=== PATIENT | male | born 1940 | race Caucasian/White ===

== ENCOUNTER 2019-09-01 12:19 | Observation (INO) | payer MEDICARE, SELFPAY ==
[2019-09-01] VITALS (25 sets, daily range): BP systolic 123–184; BP diastolic 62–93; PULSE 54–83; RESP 11–20; TEMP 36.6–37; O2SAT 96–100; BMI 27.8
--- NOTE | ~2019-09-01 | XR_ITS ---
XR chest 1V portable DATE: 09/01/2019 12:21 INDICATION: Right upper chest pain. Medically control hypertension. TECHNIQUE: Portable upright AP chest on 09/01/2019 at 1221 hours COMPARISON: 04/18/2017 PA and lateral chest FINDINGS: Heart size is within normal limits. There is aortic calcification and unfolding. There is m ild infiltrate or atelectasis involving primarily the lower lung zones. Status post sternotomy. Thoracic pedicle screws and rods are noted. Diffuse osteopenia. Bilateral glenohumeral osteoarthritis. IMPRESSION: Mild infiltrate or atelectasis involving the lower lung zones Reviewed, dictated and finalized at location A.
--- NOTE | 2019-09-01 12:01 | ED.GENADULT ---
HPI - General Adult General Chief complaint: Chest Pain Stated complaint: chest pain Time Seen by Provider: 09/01/19 12:03 Source: patient and RN notes reviewed Mode of arrival: EMS Limitations: no limitations History of Present Illness HPI narrative: Pt is a 78 y/o male presenting to the ED c/o CP. Pt reports he started experiencing substernal CP intermittently since last Tuesday. Pt states his pain is sharp and lasts for an unknown duration of time before resolving. Pt also reports SOB and upper ABD pain. Pt notes he was seen at this facility about 4-5 times throughout July and July of this year due to heart problems and was told he was having Vasovagal episodes after having his heart checked out. Pt notes he sees Dr. Gamino as his Compensation Business Partner. Pt states he is currently experiencing mild CP in his ED bed. Onset (ago): week(s) (1) Location: chest (Substernal) Quality: sharp Pain Consistency: intermittent Associated symptoms: shortness of breath and other (Upper abdominal pain) Related Data Home Medications Medication Instructions Recorded Confirmed aspirin 81 mg PO DAILY 09/01/19 09/01/19 clopidogrel [Plavix] 75 mg PO DAILY 09/01/19 09/01/19 ergocalciferol (vitamin D2) 50,000 unit PO WEEKLY 09/01/19 09/01/19 fentanyl 1 patch TRANSDERMAL Q72H 09/01/19 09/01/19 finasteride 5 mg PO DAILY 09/01/19 09/01/19 furosemide 20 mg PO DAILY 09/01/19 09/01/19 hydralazine 25 mg PO TID 09/01/19 09/01/19 hydrocodone-acetaminophen 1 tablet PO Q6H PRN 09/01/19 09/01/19 ipratropium bromide [Atrovent HFA] 1 puff INHALATION QID 09/01/19 09/01/19 lisinopril 10 mg PO BID 09/01/19 09/01/19 ropinirole 0.5 mg PO TID 09/01/19 09/01/19 simvastatin 40 mg PO DAILY 09/01/19 09/01/19 tamsulosin 0.4 mg PO DAILY 09/01/19 09/01/19 testosterone cypionate 200 mg IM WEEKLY 09/01/19 09/01/19 Allergies Allergy/AdvReac Type Severity Reaction Status Date / Time clopidogrel Allergy Mild Unknown Verified 09/01/19 12:23 albuterol Allergy Unknown Verified 09/01/19 12:24 metoprolol [From Toprol XL] Allergy Unknown Verified 09/01/19 12:24 Review of Systems Review of Systems: All systems reviewed & are unremarkable except as noted in HPI and below Cardiovascular: Cardiovascular: Reports chest pain (Substernal) Respiratory: Respiratory: Reports dyspnea Gastrointestinal: Gastrointestinal: Reports abdominal pain (Upper) [facility] Past Medical History Medical History (Updated 09/01/19 @ 14:25 by Sam Duong, DO) Abdominal aortic aneurysm (Acute) BPH (benign prostatic hyperplasia) (Acute) COPD (chronic obstructive pulmonary disease) (Acute) HTN (hypertension) (Acute) Obstructive sleep apnea on CPAP (Acute) Surgical History Surgical History (Updated 09/01/19 @ 14:09 by Lenard Nguyen) H/O heart artery stent (Acute) History of colonoscopy (Acute) History of tonsillectomy (Acute) History of total right knee replacement (Acute) Hx of CABG (Acute) Previous back surgery (Acute) Social History Social History Gender identity (if verbalized by the patient): Male Comments No known PMHx identified. Exam Narrative: Exam Narrative: APPEARANCE: No acute distress, nontoxic, resting in bed EYES: EOMI HEENT: Normocephalic, atraumatic, OMM RESPIRATORY: No respiratory distress Clear to auscultation bilaterally with no rhonchi wheezing or rales. CARDIOVASCULAR: Regular rate and rhythm without murmurs rubs or gallops. ABDOMINAL: Soft, nontender, nondistended, no rebound or guarding MUSCULOSKELETAl: Moves all extremities. No clubbing, cyanosis or edema. NEURO: Awake and alert. Following commands, speech normal, no focal deficits SKIN:: Warm, dry. No rashes lesions or abrasions PSYCHIATRIC: Normal affect/mood, Course Consultations Consultation #1: Discussed case with Compensation Business Partner Dr. Velasquez. Accepted the pt for consultation. Date: 09/01/19 Time: 13:18 Consultation #2: Discussed case with Hospitalist HEATHER Zuniga
--- NOTE | 2019-09-01 12:17 | ECG_ITS ---
Measurements Intervals [place] Rate: 60 P: -27 IN: 148 QRS: 101 QRSD: 113 T: 18 QT: 401 QTc: 401 Interpretive Statements SINUS RHYTHM ATRIAL PREMATURE COMPLEX POSSIBLE LEFT ATRIAL ENLARGEMENT RIGHT AXIS DEVIATION DELAYED PRECORDIAL R/S TRANSITION BORDERLINE ST-T WAVE ABNORMALITY- INFERIOR LEADS BASELINE ARTIFACT- I, II, AVR BORDERLINE ECG Electronically Signed On 09-01-2019 19:16:27 CDT by Zachary Hoang D.O.
[2019-09-01 12:25] LABS: Basophils Percent Auto 0.5 % (0.2-1.2); Eosinophils Absolute Auto 0.1 K/mm3 (0-0.3); Eosinophils Percent Auto 1.5 % (0-4.4); Hematocrit 43.1 % (42.0-52.0); Hemoglobin 14.6 g/dL (14.0-18.0); Immature Granulocyte Absolute 0.02 K/mm3 (0.00-0.031); Immature Granulocyte Percent A 0.3 % (0-0.5); Lymphocytes Absolute Auto 1.25 K/mm3 (0.9-3.2); Lymphocytes Percent Auto 21.1 % (18.3-44.2); Mean Corpuscular HGB Conc 33.9 g/dl (32-36); Mean Corpuscular Hemoglobin 32.7 pg (26-34); Mean Corpuscular Volume 96.6 fl (80-100); Mean Platelet Volume 9.5 fl (7.4-10.4); Monocytes Absolute Auto 0.5 K/mm3 (0.1-0.6); Monocytes Percent Auto 7.8 % (2.6-8.5); Neutrophils Absolute Auto 4.1 K/mm3 (1.3-6.7); Neutrophils Percent Auto 68.8 % (45.5-73.1); Platelet Count Result 155 k/mm3 (150-375); Red Blood Count 4.46 M/mm3 (4.6-6.20); Red Cell Distribution Width 13.2 % (11.5-14.5); White Blood Count 5.9 K/mm3 (4.5-10.0)
[2019-09-01 12:35] LABS: INR 1.1; Prothrombin Time 13.4 Seconds (11.1-14.7)
[2019-09-01 12:36] LABS: Alanine Aminotransferase 16 U/L (4-50); Albumin Level 4.3 g/dL (3.5-5.1); Alkaline Phosphatase 71 U/L (38-126); Aspartate Amino Transferase 27 U/L (17-59); Blood Urea Nitrogen 16 mg/dL (9-20); Calcium 9.5 mg/dL (8.4-10.2); Carbon Dioxide 25 mmol/L (22-30); Chloride 102 mmol/L (98-107); Estimated CRCL calculation 72 ml/min; Estimated Glomerular Filt Rate > 60; Glucose 90 mg/dL (75-110); Sodium 138 mmol/L (137-145)
[2019-09-01] MEDS: BELLADONNA ALK/PHENOB ELIX 10 ML, MAG HYDROX/ALUMINUM HYD/SIMETH 30 ML, LIDOCAINE HCL 2... PO (12:39)
[2019-09-01 13:03] LABS: Troponin I 0.043 ng/mL (0.000-0.034)
--- NOTE | 2019-09-01 14:47 | ADMGEN ---
This patient, Jan Adams, was admitted to Intermediate Care Unit-01. Patient/family oriented to hospital policies and general routines including ID bracelet, bed and alarms, visiting hours, pain management, procedures, bathroom and other care routines, personal items, smoking policy, room service/diet, and visiting hours. Valuables list has been completed. Information on how to activate the Rapid Response Team has been discussed. Patient/Family are encouraged to report perceived risks to care and to ask questions if they do not understand what they are told or what they should do.
[2019-09-01 18:29] LABS: Troponin I 0.031 ng/mL (0.000-0.034)
[2019-09-01] MEDS: hydrALAZINE HCL 25 MG TABLET PO (20:55)
[2019-09-01] MEDS: FINASTERIDE 5 MG TABLET PO (20:55)
[2019-09-01] MEDS: SIMVASTATIN 20 MG TABLET 40 MG PO (20:55)
[2019-09-01] MEDS: ASPIRIN 81 MG CHEWABLE TABLET PO (20:55)
[2019-09-01] MEDS: LISINOPRIL 10 MG TABLET PO (20:56)
--- NOTE | 2019-09-01 21:12 | PM.IMHP ---
H&P: HPI History of Present Illness Chief complaint: Chest Pain. Narrative: Jan Adams is a pleasant 78 year old male with coronary artery disease status post CABG and multiple stents over the years and history of gastritis with a very small gastric ulcer in May 1019 who presented to the emergency department earlier this afternoon via EMS for evaluation of chest pain. Since May, he has had intermittent problems with chest pain and near syncopal episodes that he has been told are vasovagal reactions. On June 29, 2019 Dr. Ramirez did endoscopy for further evaluation and the patient was found to have a very small antral gastric ulcer and duodenal bulb erosions x2. Histology revealed findings of mild chronic gastritis with superficial erosions and reactive epithelial cells. He was prescribed Protonix, 30 day supply, but he did not have that refilled thereafter. He was hospitalized again in July 2019 for chest pain. A stress test done on the was negative for ischemia, fixed or reversible, and showed an ejection fraction of 52%. He was discharged with a 14 day event monitor and notes that he had some sort of arrhythmia for which she was referred to an flash developer at [facility]. Implementation Manager reportedly told Mr. Adams that ?my arrhythmias were due to vasovagal? and he was told to lie down when he was experiencing any symptoms of such. He experiences what he believes are vasovagal responses almost daily, and it is very concerning to him. He was also told not to use his nitroglycerin as it could further drop his blood pressure. Unfortunately, with the episodes he describes, he frequently gets chest pain and today was no different. Simply while sitting down he developed right anterior chest pain that he describes as pressure-like in nature without radiation. Associated symptoms include nausea and shortness of breath. He was given a GI cocktail in the emergency department which did seem to help somewhat. His troponin level was also a bit elevated, however, and he is being admitted in this setting. At the time my evaluation, he does not have any chest pain but is currently complaining of 5/10 pain in his right hip and across the lower back which he states is due to SI joint problems. He denies fever, chills, sweats, pleuritic pain, palpitations, edema, vomiting, and sweats. Review of Systems Review of Systems: All systems reviewed & are unremarkable except as noted in HPI and below PMFSH Past Medical History Medical History (Updated 09/03/19 @ 14:27 by Amada Le PA-C) Abdominal aortic aneurysm (Acute) BPH (benign prostatic hyperplasia) (Acute) Chronic pain (Acute) COPD (chronic obstructive pulmonary disease) (Acute) Coronary artery disease (Acute) Gastric ulcer (Acute) HTN (hypertension) (Acute) Obstructive sleep apnea on CPAP (Acute) Surgical History Surgical History H/O heart artery stent (Acute) History of colonoscopy (Acute) History of tonsillectomy (Acute) History of total right knee replacement (Acute) Hx of CABG (Acute) Previous back surgery (Acute) Family History Family History Father Acute myocardial infarction Mother Dementia Social History Social History Social History: The patient is and lives with his in [place]. 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 He designates his as his surrogate decision maker and he wishes to be a full code. He is a former smoker and quit at the time of his bypass. Smoking status: Former smoker Tobacco type: cigarettes Second hand tobacco smoke exposure: Yes Smoking end date: 02/27/91 Alcohol intake: current Drinks per week: 0 Substance use: never Gender identity (if verbalized by the patient): Male S
[2019-09-02] VITALS (18 sets, daily range): BP systolic 122–166; BP diastolic 59–91; PULSE 49–78; RESP 16–20; TEMP 36.5–37.3; O2SAT 96–100
--- NOTE | 2019-09-02 03:23 | PC.NURSE ---
Daylight Savings Time For Daylight Savings Time Ending in the Fall - Clocks are moved back. For Daylight Savings Time Beginning in the Spring - Clocks are moved ahead. For [facility], the time of change occurs at 0200 hrs. Time is taken from the server manager. This entry on the patient's chart recognizes the change in time reflected during documentation. Example: 2 entries for vital signs may be charted for 0200 hrs.
[2019-09-02 05:00] LABS: Basophils Percent Auto 0.7 % (0.2-1.2); Eosinophils Absolute Auto 0.2 K/mm3 (0-0.3); Eosinophils Percent Auto 2.7 % (0-4.4); Hematocrit 42.4 % (42.0-52.0); Hemoglobin 12.9 g/dL (14.0-18.0); Immature Granulocyte Absolute 0.01 K/mm3 (0.00-0.031); Immature Granulocyte Percent A 0.2 % (0-0.5); Lymphocytes Percent Auto 37.6 % (18.3-44.2); Mean Corpuscular HGB Conc 30.4 g/dl (32-36); Mean Corpuscular Hemoglobin 31.8 pg (26-34); Mean Corpuscular Volume 104.4 fl (80-100); Mean Platelet Volume 9.4 fl (7.4-10.4); Monocytes Absolute Auto 0.5 K/mm3 (0.1-0.6); Monocytes Percent Auto 9.3 % (2.6-8.5); Neutrophils Absolute Auto 2.8 K/mm3 (1.3-6.7); Neutrophils Percent Auto 49.5 % (45.5-73.1); Platelet Count Result 135 k/mm3 (150-375); Red Blood Count 4.06 M/mm3 (4.6-6.20); Red Cell Distribution Width 13.1 % (11.5-14.5); White Blood Count 5.6 K/mm3 (4.5-10.0)
[2019-09-02 05:11] LABS: Blood Urea Nitrogen 13 mg/dL (9-20); Carbon Dioxide 23 mmol/L (22-30); Chloride 102 mmol/L (98-107); Estimated CRCL calculation 81 ml/min; Estimated Glomerular Filt Rate > 60; Glucose 92 mg/dL (75-110); Sodium 136 mmol/L (137-145)
[2019-09-02] MEDS: hydrALAZINE HCL 25 MG TABLET PO ×2 (08:38→16:56)
[2019-09-02] MEDS: LISINOPRIL 10 MG TABLET PO ×2 (08:38→20:27)
[2019-09-02] MEDS: FUROSEMIDE 40 MG TABLET PO (08:38)
[2019-09-02] MEDS: TAMSULOSIN HCL 0.4 MG CAPSULE PO (08:38)
[2019-09-02] MEDS: PANTOPRAZOLE 40 MG TABLET PO (08:39)
--- NOTE | 2019-09-02 09:39 | PC.NURSE ---
Patient has adverse reaction to generic plavix. Patient's will bring his trade name medication from home.
[2019-09-02] MEDS: DOCUSATE SODIUM 100 MG CAPSULE PO ×2 (10:29→20:27)
--- NOTE | 2019-09-02 11:36 | PM.CNCAR ---
Assessment and Plan Assessment and plan (1) Elevated troponin: Code(s): R79.89 - Other specified abnormal findings of blood chemistry Status: Acute Assessment and Plan: Troponins were slightly elevated and down trending. Cannot rule out ACS completely. Continue aspirin, clopidogrel, lisinopril, statin. I will give him 1 dose Lovenox 1 milligram/kilogram subcu x1. Despite a negative perfusion study in the recently, he has come to the hospital now on several occasions with chest pain. In fact he says he has been evaluated either in the emergency room or admitted 7 times in the past couple of months. Often times associated with symptoms of chest tightness. Despite negative stress test, it may be prudent to perform a coronary angiogram to define his coronary/graft anatomy once and for all at this point. Will discuss with interventionalist (2) Chest pain: Qualifiers: Chest pain type: other chest pain Qualified Code(s): R07.89 - Other chest pain Code(s): R07.9 - Chest pain, unspecified Status: Acute Assessment and Plan: Cardiac versus GI versus anxiety versus other. As detailed above (3) Coronary artery disease: Code(s): I25.10 - Atherosclerotic heart disease of [place] coronary artery without angina pectoris Status: Acute Assessment and Plan: History of CABG and multiple stents (4) HTN (hypertension): Code(s): I10 - Essential (primary) hypertension Status: Acute Assessment and Plan: Controlled today (5) Pre-syncope: Code(s): R55 - Syncope and collapse Status: Acute Assessment and Plan: Possibly vagal. Plan is for an implantable loop recorder. This was discussed with electrophysiology and I think it is reasonable given his recurrent presyncopal episodes. History of Present Illness History of Present Illness Consult date/time: 09/02/19 11:36 Date of service September 02, 2019 Requesting physician: Amada Le Consult reason: chest pain Chief complaint: Chest Pain. Narrative: Patient is a 78-year-old male who has a known history of coronary disease and multiple stents and bypass surgery. He also has gastritis. He has been in this hospital 7 times over the past couple of months. He is a patient of Dr. Granados. He also saw electrophysiology recently who thought the possibly his lightheadedness was related to vasovagal etiology. Last week he was at his class reunion this started feel poorly. Over this next entire week he has felt poorly. He feels ?knot?. He has random episodes of lightheadedness lasting for 10 minutes to 2 hours. He has not passed out. He also has some chest pain and pressure occurring on a daily basis it will last for about an hour at a time. He did have some improvement with a GI cocktail emergency room but that was only on 1 occasion. He does have chest pressure as well as headache and feeling as if he is going to pass out. He is increasingly frustrated and wants an implantable loop recorder placed as well as a cardiac catheterization to define his coronary anatomy. Patient denies any syncope. Does have some swelling with comes and goes. No paroxysmal nocturnal dyspnea, orthopnea. He came to the hospital in his troponin level was slightly elevated 0.043. His trended down to 0.031. EKG shows normal sinus rhythm, premature atrial contraction, left atrial enlargement nonspecific ST T wave abnormality. This EKG is personally reviewed Review of Systems Review of Systems: All systems reviewed & are unremarkable except as noted in HPI and below Constitutional: Constitutional: Reports fatigue Eyes: Eyes: Denies blurry vision ENT: Denies epistaxis Cardiovascular: Cardiovascular: Reports chest pain and Reports pedal edema Respiratory: Respiratory: Denies cough Gastrointestinal: Gastrointestinal: Denies abdominal pain Genitourinary: Genitourinary: Denies dysuria Musculoskeletal: Musculoskelet
[2019-09-02] MEDS: ENOXAPARIN 80 MG/0.8 ML SYRINGE 75 MG SUB-Q (13:23)
--- NOTE | 2019-09-02 13:51 | PM.IMPN ---
Progress Note: A&P Assessment and Plan (1) Chest pain: Qualifiers: Chest pain type: other chest pain Qualified Code(s): R07.89 - Other chest pain Code(s): R07.9 - Chest pain, unspecified Status: Acute Assessment and Plan: Patient is 78-year-old male with a past medical history of coronary artery disease with CABG and 14 stents, for last 2 months patient has experienced chest pain he has been evaluated emergency department as well as admitted in the hospital without any definite diagnosis his symptoms are persisting, a most time he is diagnosed with vasovagal however his symptoms keep persistenting, today he is tropes are slightly elevated patient is seen by stock trader and recommended to further evaluate patient's persistent chest pain his recommending cardiac catheterization which is scheduled for tomorrow and further recommendation to follow patient has agreed with plan (2) Elevated troponin: Code(s): R79.89 - Other specified abnormal findings of blood chemistry Status: Acute Assessment and Plan: Most likely demand ischemia due to chest pain however patient does have a strong history of coronary artery disease with a CABG and 14 stents seen by stock trader recommending cardiac Angiography for further evaluation (3) HTN (hypertension): Code(s): I10 - Essential (primary) hypertension Status: Acute Assessment and Plan: Will continue home regimen and monitor (4) Arrhythmia: Code(s): I49.9 - Cardiac arrhythmia, unspecified Status: Acute Assessment and Plan: Patient is seen by animal eviscerator does not suspect patient has arrhythmia however is seen by stock trader and further recommendation to follow (5) Coronary artery disease: Code(s): I25.10 - Atherosclerotic heart disease of [place] coronary artery without angina pectoris Status: Acute Assessment and Plan: Patient with strong history of coronary artery disease with a CABG in 14 stents plan is above will continue current regimen (6) DVT prophylaxis: Code(s): Z29.9 - Encounter for prophylactic measures, unspecified Status: Acute Assessment and Plan: Lovenox Subjective Interval history: Patient is 78-year-old male with a past medical history of coronary artery disease with CABG and 14 stents, for last 2 months patient has experienced chest pain he has been evaluated emergency department as well as admitted in the hospital without any definite diagnosis his symptoms are persisting, a most time he is diagnosed with vasovagal however his symptoms keep persistenting, today he is tropes are slightly elevated patient is seen by stock trader and recommended to further evaluate patient's persistent chest pain his recommending cardiac catheterization which is scheduled for tomorrow and further recommendation to follow patient has agreed with plan Review of Systems Constitutional: Comments: Patient is comfortable no acute distress at present time does not have any chest pain Eyes: Eyes: Reports as per HPI ENT: Reports as per HPI Cardiovascular: Comments: It present time patient denies any chest pain while lying in the bed Respiratory: Respiratory: Reports as per HPI Gastrointestinal: Gastrointestinal: Reports as per HPI Musculoskeletal: Musculoskeletal: Reports as per HPI Integumentary/Breasts: Skin/Breast: Reports as per HPI Neurologic: Reports as per HPI Psychiatric: Psychiatric: Reports as per HPI Exam Const: General: comfortable and no acute distress HENMT: General nose exam: nares normal Mouth: Yes moist mucous membranes Eyes: General: appearance normal, both eyes and all related structures Sclera: sclerae normal Neck: Neck: supple Resp: Other: Bilateral fair air entry with minimal crackles Cardio: Rate: regular rate Rhythm: regular rhythm Other: No murmur or gallop Skin: General skin exam: normal color and no rashes or lesions noted N
--- NOTE | 2019-09-02 13:52 | PHAR ---
Drug Name: Plavix Ingredients: Clopidogrel Hydrogen Sulfate -- 75 MG Related Documents: DRUGDEX Evaluations - CLOPIDOGREL Color: [place] Shape: [place] Imprint: 1171 , 75 Form: Oral Tablet VERIFIED
[2019-09-02] MEDS: SIMVASTATIN 20 MG TABLET 40 MG PO (16:56)
[2019-09-02] MEDS: FINASTERIDE 5 MG TABLET PO (16:56)
[2019-09-02] MEDS: ASPIRIN 81 MG CHEWABLE TABLET PO (16:56)
[2019-09-02] MEDS: FENTANYL 75 MCG/HR PATCH TRANSDERM (17:02)
[2019-09-03] VITALS (16 sets, daily range): BP systolic 104–152; BP diastolic 48–75; PULSE 52–82; RESP 16–20; TEMP 36.6–37.2; O2SAT 96–100
[2019-09-03 05:55] LABS: Hematocrit 38.8 % (42.0-52.0); Hemoglobin 13.1 g/dL (14.0-18.0); Immature Platelet Fraction Pct 2.6 % (0.9-11.2); Mean Corpuscular HGB Conc 33.8 g/dl (32-36); Mean Corpuscular Hemoglobin 32.5 pg (26-34); Mean Corpuscular Volume 96.3 fl (80-100); Mean Platelet Volume 9.7 fl (7.4-10.4); Platelet Count Result 141 k/mm3 (150-375); Red Blood Count 4.03 M/mm3 (4.6-6.20); Red Cell Distribution Width 13.2 % (11.5-14.5); White Blood Count 5.8 K/mm3 (4.5-10.0)
[2019-09-03 06:01] LABS: Blood Urea Nitrogen 13 mg/dL (9-20); Carbon Dioxide 24 mmol/L (22-30); Chloride 103 mmol/L (98-107); Estimated CRCL calculation 81 ml/min; Estimated Glomerular Filt Rate > 60; Glucose 89 mg/dL (75-110); Potassium 3.8 mmol/L (3.4-5.0); Sodium 138 mmol/L (137-145)
[2019-09-03] MEDS: DOCUSATE SODIUM 100 MG CAPSULE PO ×2 (08:02→20:32)
[2019-09-03] MEDS: LISINOPRIL 10 MG TABLET PO ×2 (08:02→20:32)
[2019-09-03] MEDS: PANTOPRAZOLE 40 MG TABLET PO (08:02)
[2019-09-03] MEDS: TAMSULOSIN HCL 0.4 MG CAPSULE PO (08:03)
[2019-09-03] MEDS: hydrALAZINE HCL 25 MG TABLET PO ×2 (14:05→17:48)
[2019-09-03] MEDS: FUROSEMIDE 40 MG TABLET PO (14:05)
--- NOTE | 2019-09-03 17:33 | PM.IMPN ---
Progress Note: A&P Assessment and Plan (1) Chest pain: Qualifiers: Chest pain type: other chest pain Qualified Code(s): R07.89 - Other chest pain Code(s): R07.9 - Chest pain, unspecified Status: Acute Assessment and Plan: Patient is 78-year-old male with a past medical history of coronary artery disease with CABG and 14 stents, for last 2 months patient has experienced chest pain he has been evaluated emergency department as well as admitted in the hospital without any definite diagnosis his symptoms are persisting, a most time he is diagnosed with vasovagal however his symptoms keep persistenting, today he is tropes are slightly elevated patient is seen by sand filler and recommended to further evaluate patient's persistent chest pain his recommending cardiac catheterization which is scheduled for later today and further recommendation to follow patient has agreed with plan (2) Elevated troponin: Code(s): R79.89 - Other specified abnormal findings of blood chemistry Status: Acute Assessment and Plan: Patient with elevated tropes seen by sand filler is scheduled for cardiac catheterization later today (3) Coronary artery disease: Code(s): I25.10 - Atherosclerotic heart disease of [place] coronary artery without angina pectoris Status: Acute Assessment and Plan: Status post CABG and up to 14 stents since the . Continue aspirin, Plavix, and statin. (4) HTN (hypertension): Code(s): I10 - Essential (primary) hypertension Status: Acute Assessment and Plan: Patient under stress with persistent chest pain and no significant diagnosis blood pressure is running high will continue home regimen and monitor (5) Arrhythmia: Code(s): I49.9 - Cardiac arrhythmia, unspecified Status: Acute Assessment and Plan: Will monitor on telemetry seen by sand filler further recommendation to follow Subjective Interval history: Patient is 78-year-old male with a past medical history of coronary artery disease with CABG and 14 stents, for last 2 months patient has experienced chest pain he has been evaluated emergency department as well as admitted in the hospital without any definite diagnosis his symptoms are persisting, a most time he is diagnosed with vasovagal however his symptoms keep persistenting, today he is tropes are slightly elevated patient is seen by sand filler and recommended to further evaluate patient's persistent chest pain his recommending cardiac catheterization which is scheduled for later today and further recommendation to follow patient has agreed with plan Review of Systems Review of Systems: All systems reviewed & are unremarkable except as noted in HPI and below Eyes: Eyes: Reports as per HPI ENT: Reports as per HPI Respiratory: Respiratory: Reports as per HPI Gastrointestinal: Gastrointestinal: Reports as per HPI Musculoskeletal: Musculoskeletal: Reports as per HPI Integumentary/Breasts: Skin/Breast: Reports as per HPI Neurologic: Reports as per HPI Psychiatric: Psychiatric: Reports as per HPI Exam Const: General: comfortable and no acute distress HENMT: General nose exam: nares normal Mouth: Yes moist mucous membranes Eyes: General: appearance normal, both eyes and all related structures Sclera: sclerae normal Neck: Neck: supple Cardio: Rate: regular rate Rhythm: regular rhythm Skin: General skin exam: normal color and no rashes or lesions noted Neuro: Cognition (Neuro): normal cognition Speech: normal speech Sensory Exam: normal sensation Extrem: General: normal to inspection Psych: Affect: anxious affect Objective Data Vital Signs Vital Signs: Vital Signs - 24 hr 09/02/19 18:00 09/02/19 20:00 09/02/19 20:10 Temperature 37.3 C Pulse Rate 65 74 78 Respiratory Rate 16 Blood Pressure 134/59 L Pulse Oximetry 100 09/02/19 22:00 09/03/19 00:00 09/03/19 02:00 [place]
[2019-09-03] MEDS: FINASTERIDE 5 MG TABLET PO (17:48)
[2019-09-03] MEDS: ASPIRIN 81 MG CHEWABLE TABLET PO (17:48)
[2019-09-03] MEDS: SIMVASTATIN 20 MG TABLET 40 MG PO (17:48)
--- NOTE | 2019-09-03 18:14 | PM.PNCARD ---
Progress Note: A&P Assessment and Plan (1) Elevated troponin: Code(s): R79.89 - Other specified abnormal findings of blood chemistry Status: Acute Assessment and Plan: Troponins were slightly elevated and trended down. Cannot rule out ACS completely. Continue aspirin, clopidogrel, lisinopril, statin. Despite a negative perfusion study in the office recently, he has come to the hospital on several occasions with chest pain. He says he has been evaluated either in the emergency room or admitted 7 times in the past couple of months. Often times associated with symptoms of chest tightness. Coronary angiogram to define his coronary/graft anatomy once and for all at this point. Will schedule for cardiac catheterization in the morning. (2) Chest pain: Qualifiers: Chest pain type: other chest pain Qualified Code(s): R07.89 - Other chest pain Code(s): R07.9 - Chest pain, unspecified Status: Acute Assessment and Plan: Cardiac versus GI versus anxiety versus other. As detailed above (3) Coronary artery disease: Code(s): I25.10 - Atherosclerotic heart disease of [place] coronary artery without angina pectoris Status: Acute Assessment and Plan: History of CABG and multiple stents (4) HTN (hypertension): Code(s): I10 - Essential (primary) hypertension Status: Acute Assessment and Plan: Occasional elevated blood pressures but for the most part controlled (5) Pre-syncope: Code(s): R55 - Syncope and collapse Status: Acute Assessment and Plan: Possibly vagal. Plan is for an implantable loop recorder. This was discussed with electrophysiology it is reasonable given his recurrent presyncopal episodes. No pauses or significant bradycardia on telemetry well symptomatic with ?near faint?. Additional Plan Plan discussed with Dr. Doe 18309/03/2019 Subjective Interval history: Follow-up for coronary artery disease status post CABG and reported 14 stents, chest pain, near-syncope Follow-up for September 03, 2019: Denied chest discomfort, shortness of breath or palpitations. Episode of near ?faint? several minutes after straining for bowel movement. Review of Systems Constitutional: Constitutional: Denies excessive sweating, Reports fatigue and Reports headache(s) Eyes: Eyes: Denies blurry vision ENT: Reports headache(s), Denies lip swelling, Denies epistaxis and Denies neck pain Cardiovascular: Cardiovascular: Denies chest pain, Reports pedal edema and Reports lightheadedness Respiratory: Respiratory: Denies cough Gastrointestinal: Gastrointestinal: Denies abdominal pain Genitourinary: Genitourinary: Denies dysuria Musculoskeletal: Musculoskeletal: Denies neck pain Integumentary/Breasts: Skin/Breast: Denies rash Neurologic: Reports headache(s) Psychiatric: Psychiatric: Reports anxiety Endocrine: Endocrine: Denies excessive sweating, Reports fatigue and Denies flushing Hematologic/Lymphatic: Hematologic/Lymphatic: Denies easy bleeding Allergic/Immunologic: Allergic/Immunologic: Denies lip swelling Exam Const: General: comfortable and no acute distress HENMT: General nose exam: nares normal Eyes: Sclera: sclerae normal Neck: Neck: supple and no JVD Resp: Effort & Inspection: normal respiratory effort Auscultation: clear to auscultation bilaterally Cardio: Rate: regular rate Rhythm: regular rhythm Heart sounds: murmur GI: Palpation (GI): Yes soft and No tender Skin: General skin exam: normal color Neuro: General: gait normal Speech: normal speech Extrem: General: normal to inspection and no edema Psych: Affect: normal affect Objective Data Vital Signs Vital Signs: Vital Signs - 24 hr 09/02/19 20:00 09/02/19 20:10 09/02/19 22:00 Temperature 37.3 C Pulse Rate 74 78 59 L Respiratory Rate 16 Blood Pressure 134/59 L Pulse Oximetry 100 09/03/19 00:00 09/03/19 02:00 09/03/19
[2019-09-04] VITALS (23 sets, daily range): BP systolic 111–166; BP diastolic 56–93; PULSE 49–77; RESP 12–20; TEMP 36.6–36.7; O2SAT 96–100
[2019-09-04 05:11] LABS: Hematocrit 37.8 % (42.0-52.0); Hemoglobin 12.6 g/dL (14.0-18.0); Immature Platelet Fraction Pct 2.2 % (0.9-11.2); Mean Corpuscular HGB Conc 33.3 g/dl (32-36); Mean Corpuscular Hemoglobin 32.4 pg (26-34); Mean Corpuscular Volume 97.2 fl (80-100); Mean Platelet Volume 9.7 fl (7.4-10.4); Platelet Count Result 147 k/mm3 (150-375); Red Blood Count 3.89 M/mm3 (4.6-6.20); Red Cell Distribution Width 13.4 % (11.5-14.5); White Blood Count 6.2 K/mm3 (4.5-10.0)
[2019-09-04 05:33] LABS: Blood Urea Nitrogen 13 mg/dL (9-20); Calcium 8.6 mg/dL (8.4-10.2); Carbon Dioxide 27 mmol/L (22-30); Chloride 102 mmol/L (98-107); Estimated CRCL calculation 81 ml/min; Estimated Glomerular Filt Rate > 60; Glucose 89 mg/dL (75-110); Potassium 3.9 mmol/L (3.4-5.0); Sodium 137 mmol/L (137-145)
--- NOTE | 2019-09-04 08:32 | P.HP_ITS ---
Patient Data Allergies Allergy/AdvReac Type Severity Reaction Status Date / Time clopidogrel Allergy Mild Unknown Verified 09/01/19 12:23 albuterol Allergy Unknown Verified 09/01/19 12:24 metoprolol [From Toprol XL] Allergy Unknown Verified 09/01/19 12:24 Home Medications Medication Instructions Recorded Confirmed Type aspirin 81 mg PO QPM 09/01/19 09/01/19 History clopidogrel [Plavix] 75 mg PO DAILY 09/01/19 09/01/19 History ergocalciferol (vitamin D2) 50,000 unit PO WEEKLY 09/01/19 09/01/19 History fentanyl 1 patch TRANSDERMAL Q72H 09/01/19 09/01/19 History finasteride 5 mg PO QPM 09/01/19 09/01/19 History furosemide 40 mg PO DAILY 09/01/19 09/01/19 History hydralazine 25 mg PO BID 09/01/19 09/01/19 History hydrocodone-acetaminophen 1 tablet PO Q6H PRN 09/01/19 09/01/19 History ipratropium bromide [Atrovent HFA] 1 puff INHALATION QID 09/01/19 09/01/19 History lisinopril 10 mg PO BID 09/01/19 09/01/19 History mometasone-formoterol [Dulera] 2 puff INHALATION Q12H 09/01/19 09/01/19 History ropinirole 0.5 mg PO HS 09/01/19 09/01/19 History simvastatin 40 mg PO QPM 09/01/19 09/01/19 History tamsulosin 0.4 mg PO DAILY 09/01/19 09/01/19 History testosterone cypionate See Rx Instructions .ROUTE .COMPLEX 09/01/19 09/01/19 History Current Medications: Active Medications Hydrocodone Bitart/Acetaminophen ([place] 7.5-325 Mg) 2 tab PO Q6H PRN PRN Reason: Pain Last Admin: 09/04/19 06:16 Dose: 2 tab Documented by: Aspirin (Aspirin) 81 mg PO QPM [facility] Last Admin: 09/03/19 17:48 Dose: 81 mg Documented by: Docusate Sodium (Colace Cap) 100 mg PO Q12HR [facility] Last Admin: 09/03/19 20:32 Dose: 100 mg Documented by: Ergocalciferol (Drisdol) 50,000 unit PO Sa@0900 [facility] Fentanyl (Duragesic 75 Mcg Patch) 75 mcg TRANSDERM Q72HR [facility] Last Admin: 09/02/19 17:02 Dose: 75 mcg Documented by: Finasteride (Proscar) 5 mg PO QPM [facility] Last Admin: 09/03/19 17:48 Dose: 5 mg Documented by: Furosemide (Lasix Tablet) 40 mg PO DAILY [facility] Last Admin: 09/03/19 14:05 Dose: 40 mg Documented by: Hydralazine HCl (Apresoline Tablet) 25 mg PO BIDWM [facility] Last Admin: 09/03/19 17:48 Dose: 25 mg Documented by: Lisinopril (Prinivil) 10 mg PO Q12HR [facility] Last Admin: 09/03/19 20:32 Dose: 10 mg Documented by: Pantoprazole Sodium (Protonix) 40 mg PO QAM [facility] Last Admin: 09/03/19 08:02 Dose: 40 mg Documented by: Ropinirole HCl (Ropinirole Hcl) 0.5 mg PO HS [facility] Last Admin: 09/03/19 20:32 Dose: 0.5 mg Documented by: Simvastatin (Zocor) 40 mg PO QPM [facility] Last Admin: 09/03/19 17:48 Dose: 40 mg Documented by: Tamsulosin HCl (Flomax) 0.4 mg PO DAILY [facility] Last Admin: 09/03/19 08:03 Dose: 0.4 mg Documented by: Sedation/Anesthesia: No previous sedation/anesthesia problems (including family history). [facility] Past Medical History Medical History (Updated 09/03/19 @ 14:27 by ASHLEY MorenoC) Abdominal aortic aneurysm (Acute) BPH (benign prostatic hyperplasia) (Acute) Chronic pain (Acute) COPD (chronic obstructive pulmonary disease) (Acute) Coronary artery disease (Acute) Gastric ulcer (Acute) HTN (hypertension) (Acute) Obstructive sleep apnea on CPAP (Acute) Surgical History Surgical History H/O heart artery stent (Acute) History of
--- NOTE | 2019-09-04 08:32 | WPDMODSED ---
Patient Data Allergies Allergy/AdvReac Type Severity Reaction Status Date / Time clopidogrel Allergy Mild Unknown Verified 09/01/19 12:23 albuterol Allergy Unknown Verified 09/01/19 12:24 metoprolol [From Toprol XL] Allergy Unknown Verified 09/01/19 12:24 Home Medications Medication Instructions Recorded Confirmed Type aspirin 81 mg PO QPM 09/01/19 09/01/19 History clopidogrel [Plavix] 75 mg PO DAILY 09/01/19 09/01/19 History ergocalciferol (vitamin D2) 50,000 unit PO WEEKLY 09/01/19 09/01/19 History fentanyl 1 patch TRANSDERMAL Q72H 09/01/19 09/01/19 History finasteride 5 mg PO QPM 09/01/19 09/01/19 History furosemide 40 mg PO DAILY 09/01/19 09/01/19 History hydralazine 25 mg PO BID 09/01/19 09/01/19 History hydrocodone-acetaminophen 1 tablet PO Q6H PRN 09/01/19 09/01/19 History ipratropium bromide [Atrovent HFA] 1 puff INHALATION QID 09/01/19 09/01/19 History lisinopril 10 mg PO BID 09/01/19 09/01/19 History mometasone-formoterol [Dulera] 2 puff INHALATION Q12H 09/01/19 09/01/19 History ropinirole 0.5 mg PO HS 09/01/19 09/01/19 History simvastatin 40 mg PO QPM 09/01/19 09/01/19 History tamsulosin 0.4 mg PO DAILY 09/01/19 09/01/19 History testosterone cypionate See Rx Instructions .ROUTE .COMPLEX 09/01/19 09/01/19 History Current Medications: Active Medications Hydrocodone Bitart/Acetaminophen ([place] 7.5-325 Mg) 2 tab PO Q6H PRN PRN Reason: Pain Last Admin: 09/04/19 06:16 Dose: 2 tab Documented by: Aspirin (Aspirin) 81 mg PO QPM [facility] Last Admin: 09/03/19 17:48 Dose: 81 mg Documented by: Docusate Sodium (Colace Cap) 100 mg PO Q12HR [facility] Last Admin: 09/03/19 20:32 Dose: 100 mg Documented by: Ergocalciferol (Drisdol) 50,000 unit PO Sa@0900 [facility] Fentanyl (Duragesic 75 Mcg Patch) 75 mcg TRANSDERM Q72HR [facility] Last Admin: 09/02/19 17:02 Dose: 75 mcg Documented by: Finasteride (Proscar) 5 mg PO QPM [facility] Last Admin: 09/03/19 17:48 Dose: 5 mg Documented by: Furosemide (Lasix Tablet) 40 mg PO DAILY [facility] Last Admin: 09/03/19 14:05 Dose: 40 mg Documented by: Hydralazine HCl (Apresoline Tablet) 25 mg PO BIDWM [facility] Last Admin: 09/03/19 17:48 Dose: 25 mg Documented by: Lisinopril (Prinivil) 10 mg PO Q12HR [facility] Last Admin: 09/03/19 20:32 Dose: 10 mg Documented by: Pantoprazole Sodium (Protonix) 40 mg PO QAM [facility] Last Admin: 09/03/19 08:02 Dose: 40 mg Documented by: Ropinirole HCl (Ropinirole Hcl) 0.5 mg PO HS [facility] Last Admin: 09/03/19 20:32 Dose: 0.5 mg Documented by: Simvastatin (Zocor) 40 mg PO QPM [facility] Last Admin: 09/03/19 17:48 Dose: 40 mg Documented by: Tamsulosin HCl (Flomax) 0.4 mg PO DAILY [facility] Last Admin: 09/03/19 08:03 Dose: 0.4 mg Documented by: Sedation/Anesthesia: No previous sedation/anesthesia problems (including family history). [facility] Past Medical History Medical History (Updated 09/03/19 @ 14:27 by Amada Le PA-C) Abdominal aortic aneurysm (Acute) BPH (benign prostatic hyperplasia) (Acute) Chronic pain (Acute) COPD (chronic obstructive pulmonary disease) (Acute) Coronary artery disease (Acute) Gastric ulcer (Acute) HTN (hypertension) (Acute) Obstructive sleep apnea on CPAP (Acute) Surgical History Surgical History H/O heart artery stent (Acute) History of colonoscopy (Acute) History of tonsillectomy (Acute) History of total right knee replacement (Acute) Hx of CABG (Acute) Previous back surgery (Acute) Family History Family History Father Acute myocardial infarction Mother Dementia Social History Social History Social History: The patient is and lives with his in [place]. 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 He designates his as his surrogate decision maker and he wishes to be a full code. He is a former sm
--- NOTE | 2019-09-04 11:13 | ECG_ITS ---
Measurements Intervals [place] Rate: 57 P: -22 [place]: 158 QRS: 74 QRSD: 109 T: 17 QT: 411 QTc: 403 Interpretive Statements SINUS BRADYCARDIA BORDERLINE ST-T WAVE ABNORMALITY- INFERIOR LEADS BORDERLINE ECG Electronically Signed On 09-04-2019 12:05:29 HEAD PIECE ASSEMBLER by Zachary Hoang D.O.
--- NOTE | 2019-09-04 11:42 | OP_ITS ---
DATE OF PROCEDURE: 09/04/2019 CARDIAC CATHETERIZATION AND INTERVENTION REPORT INDICATION FOR PROCEDURE: Chest pain, minimal troponin elevation - probable [id number] NC. BRIEF CLINICAL HISTORY: A 78-year-old male with known coronary artery disease; history of remote CABG in 1990 (operative report not available); history of multiple PCI/stent placement (last percutaneous coronary intervention done on 05/22/2013 with placement of drug-eluting stent extending from distal left main to the proximal ramus) on 05/21/2013 at [facility] (performed by Dr. Kevin). The patient was admitted to [facility] with recurrent chest discomfort. His EKG showed sinus rhythm, poor R-wave progression. The patient's troponins were minimally elevated. He was referred for coronary angiogram to re-evaluate coronary anatomy, rule out in-stent restenosis and evaluated bypass grafts. His previous angiogram from 05/22/2013 was reported to show patent CONKLIN to LAD; occluded vein grafts. The patient reported that he is scheduled to undergo right hip surgery, and would like to avoid any stenting if possible. Benefits and risks of the procedure were discussed with the patient. Informed consent was taken prior to the procedure. PROCEDURES PERFORMED: 1. Selective left and right coronary angiogram. 2. Selective bypass graft angiography. 3. Selective left subclavian angiogram. 4. Percutaneous coronary intervention -. a. Intravascular ultrasound (IVUS) of left main and proximal ramus intermedius. b. Intravascular ultrasound-guided balloon angioplasty of distal left main and ostial ramus intermedius. 5. Selective right common femoral angiogram and deployment of Angio-Seal vascular closure device. 6. Moderate sedation - CPT code 44774. ACCESS SITE: Right common femoral artery. SEDATION: Versed 2 mg, fentanyl 50 mcg IV in divided doses; start time 0903, stop time 1001; total [id number] time 58 minutes; Franci Verde RN was trained observer for moderate sedation. PROCEDURE NOTE: The patient brought to the lab nurse, prepped and draped in the usual sterile manner. After local anesthesia with lidocaine, right common femoral artery access was taken with micropuncture needle followed by insertion of a 6-Bhutanese sheath. Selective left coronary angiogram was performed. Using 5-Bhutanese JL4 diagnostic catheter. Orthogonal views were taken. Selective right coronary angiogram was performed using 5-Bhut[place] JR4 catheter. The same catheter was used for selective bypass graft angiography of the vein graft. The catheter was withdrawn, and was pointed towards the left subclavian artery. Selective left subclavian coronary angiogram was performed. After this, the catheter was exchanged with a 5-Bhutanese IM catheter, CONKLIN angiogram was performed with the IM catheter. After this, a pigtail catheter was advanced to the aortic root, there was difficulty in advancing the aortic valve. After multiple attempts, the crossing of the aortic valve was aborted. Therefore, left ventriculogram was not performed. Based on angiographic findings, we proceeded with intravascular ultrasound guided intervention on the distal left main and proximal ramus intermedius. The angiographic findings and details of intervention are given below. FINDINGS: [place] coronary arteries. Left main coronary artery: The left main coronary artery is a medium-sized vessel; previously placed stent in the distal segment is patent with mild luminal loss. Left anterior descending artery: The LAD is totally occluded at its origin. The distal LAD is supplied by patent CONKLIN. Ramus intermedius: The ramus intermedius is a large-sized vessel. Multiple stents are seen in the ramus intermedius. There is high-grade about 70% in-stent restenosis at th
--- NOTE | 2019-09-04 12:41 | SUR.PHASEI ---
1015: RETURNS TO FRONT DESK SPECIALIST 5 VIA STRETCHER S/P [facility] W/ DR. OSCAR. S/P ANGIOPLASTY TO LM. SHEATH R.FA REMOVED IN CCL, ANGIOSEAL CLOSURE DEVICE TO R.FA. DRESSING OF GUAZE AND TEGADERM C/D/I TO R. GROIN SITE. NO S/S BLEEDING OR HEMATOMA NOTED. DENIES CP OR SOB AT THIS TIME. ANGIOMAX GTT CONTINUES AT 32ML/HR PER PUMP. R. PEDAL PULSE EASILY PALP. HX OF CHRONIC LOWER BACK PAIN. KPAD IN PLACE TO LOWER BACK, BUTTOCKS AREA. IVF'S RUNNING. POST PROCEDURE BEDREST ACTIVITY RESTRICTIONS EXPLAINED. PT AND VERBALIZED UNDERSTANDING. WILL CONTINUE TO MONITOR. 1040: ANGIOMAX GTT COMPLETE. 1115: END PHASE I RECOVERY. NO NEW CHANGES NOTED. SEE PHASE II FOR FURTHER DOCUMENTATION.
--- NOTE | 2019-09-04 13:23 | SUR.PHASEII ---
1116: BEGIN PHASE II RECOVERY. BEDREST POST LHC W/ ANGIOSEAL CLOSURE CONTINUES X 2 HOURS UNTIL 1240. IVF CONTINUE ORDERED. R. GROIN SITE SOFT, NONTENDER. DRESSING D/I. NO S/S BLEEDING OR HEMATOMA NOTED. BEDREST RESTRICTIONS REVIEWED. WILL CONTINUE TO MONITOR. VSS. 1140: REPORT CALLED TO RAQUEL KING RN. 1221: HYDROCODONE/APAP PRN RX GIVEN ORDERED FOR C/O INCREASE IN INTENSITY OF SPASMS TO LOWER BACK. KPAD CONTINUES TO LOWER BACK/BUTTOCKS BEFORE. 1300: BEDREST X 2 HOURS POST ANGIOMAX GTT COMPLETED DONE AT 1240. HOB UP 30 DEGREES. AWAIT ORDERS TO RETURN TO IMU. 1315: CONDITION UPDATE GIVEN TO CRISTIANO LEPE NP. OK TO RETURN PT TO IMU 202.1. NO NEW CHANGES.
[2019-09-04] MEDS: DOCUSATE SODIUM 100 MG CAPSULE PO ×2 (15:29→20:04)
[2019-09-04] MEDS: FUROSEMIDE 40 MG TABLET PO (15:29)
[2019-09-04] MEDS: LISINOPRIL 10 MG TABLET PO ×2 (15:29→20:04)
[2019-09-04] MEDS: PANTOPRAZOLE 40 MG TABLET PO (15:30)
[2019-09-04] MEDS: TAMSULOSIN HCL 0.4 MG CAPSULE PO (15:30)
[2019-09-04] MEDS: hydrALAZINE HCL 25 MG TABLET PO (15:30)
--- NOTE | 2019-09-04 16:20 | PM.IMPN ---
Progress Note: A&P Assessment and Plan (1) Chest pain: Qualifiers: Chest pain type: other chest pain Qualified Code(s): R07.89 - Other chest pain Code(s): R07.9 - Chest pain, unspecified Status: Acute Assessment and Plan: Patient is 78-year-old male with a past medical history of coronary artery disease with CABG and 14 stents, had elevated troponins, pt had heart cath today which was abnormal patient had stent placed, pt to be observed overnite on telemetry (2) Elevated troponin: Code(s): R79.89 - Other specified abnormal findings of blood chemistry Status: Acute Assessment and Plan: Patient with elevated tropes cardiac catheterization today is abnormal (3) Coronary artery disease: Code(s): I25.10 - Atherosclerotic heart disease of [place] coronary artery without angina pectoris Status: Acute Assessment and Plan: Status post CABG and up to 14 stents, in . Continue aspirin, Plavix, and statin. (4) HTN (hypertension): Code(s): I10 - Essential (primary) hypertension Status: Acute Assessment and Plan: Patient under stress with persistent chest pain, Bp still slightly high today (5) Arrhythmia: Code(s): I49.9 - Cardiac arrhythmia, unspecified Status: Acute Assessment and Plan: Will monitor on telemetry seen by sliding joint maker Subjective Interval history: Follow-up for coronary artery disease status post CABG and reported 14 stents, pt went down for heart cath today had to have stent placed, observe overnite hopeful discharge tomorrow morning Review of Systems Review of Systems: All systems reviewed & are unremarkable except as noted in HPI and below Eyes: Eyes: Reports as per HPI ENT: Reports as per HPI Respiratory: Respiratory: Reports as per HPI Gastrointestinal: Gastrointestinal: Reports as per HPI Musculoskeletal: Musculoskeletal: Reports as per HPI Neurologic: Reports as per HPI Psychiatric: Psychiatric: Reports as per HPI Exam Narrative: Exam Narrative: General: Well-developed HEENT: Normocephalic Respiratory: Lungs are clear to auscultation bilaterally. Cardiovascular: Regular rate and rhythm Gastrointestinal: Abdomen is soft, nontender Skin: Warm and dry. Extremities: No cyanosis or clubbing. Neurological: Alert. Cranial nerves 2-12 are grossly intact. Speech is clear. No facial asymmetry. No gross focal deficits to casual conversation. Psychiatric: Pleasant and cooperative with normal mood and affect. Objective Data Vital Signs Vital Signs: Vital Signs - 24 hr 09/03/19 18:00 09/03/19 20:00 09/03/19 20:11 Temperature 37.2 C Pulse Rate 82 63 65 Respiratory Rate 18 Blood Pressure 123/65 Pulse Oximetry 100 09/03/19 22:00 09/03/19 23:54 09/04/19 00:00 Temperature 36.6 C Pulse Rate 63 61 57 L Respiratory Rate 20 Blood Pressure 110/59 L Pulse Oximetry 99 09/04/19 02:00 09/04/19 04:00 09/04/19 05:04 Temperature 36.6 C Pulse Rate 53 L 49 L 66 Respiratory Rate 20 Blood Pressure 111/61 Pulse Oximetry 100 09/04/19 06:00 09/04/19 08:00 09/04/19 08:13 Temperature 36.6 C Pulse Rate 62 61 57 L Respiratory Rate 20 Blood Pressure 126/75 Pulse Oximetry 96 09/04/19 10:20 09/04/19 10:30 09/04/19 10:45 Temperature 36.6 C Pulse Rate 63 59 L 60 Respiratory Rate 12 14 14 Blood Pressure 152/93 H 148/86 H 151/79 H Pulse Oximetry 100 100 100 09/04/19 11:00 09/04/19 11:30 09/04/19 12:00 Temperature Pulse Rate 54 L 57 L 56 L Respiratory Rate 14 14 14 Blood Pressure 163/73 H 166/83 H 163/74 H Pulse Oximetry 100 100 100 09/04/19 13:00 09/04/19 14:06 09/04/19 14:18 Temperature 36.6 C Pulse Rate 60 77 65 Respiratory Rate 14 20 Blood Pressure 148/82 H 164/68 H Pulse Oximetry 100 100 Intake/Output Intake/Output: Intake & Output 09/02/19 09/02/19 09/03/19 09/04/19 00:59 23:59 23:59 23:59 Intake Total
[2019-09-04] MEDS: SIMVASTATIN 20 MG TABLET 40 MG PO (18:30)
[2019-09-04] MEDS: ASPIRIN 81 MG CHEWABLE TABLET PO (18:30)
[2019-09-04] MEDS: FINASTERIDE 5 MG TABLET PO (18:30)
--- NOTE | 2019-09-04 20:23 | SUR.PHASEII ---
1350: REPORT UPDATE HAS BEEN CALLED TO RAQUEL KING RN. PT. RETURNED TO IMU ROOM 202.1 VIA BED ON TELE MONITOR. ASSESSMENT OF Juany KAM SITE COMPLETED BEDSIDE W/ Nicol KING RN.
[2019-09-05] VITALS (7 sets, daily range): BP systolic 113–159; BP diastolic 50–73; PULSE 48–84; RESP 18–20; TEMP 36.4–37.1; O2SAT 98–100
[2019-09-05 04:51] LABS: Hematocrit 38.7 % (42.0-52.0); Hemoglobin 12.8 g/dL (14.0-18.0); Immature Platelet Fraction Pct 2.4 % (0.9-11.2); Mean Corpuscular HGB Conc 33.1 g/dl (32-36); Mean Corpuscular Hemoglobin 32.4 pg (26-34); Mean Platelet Volume 9.6 fl (7.4-10.4); Platelet Count Result 146 k/mm3 (150-375); Red Blood Count 3.95 M/mm3 (4.6-6.20); Red Cell Distribution Width 13.4 % (11.5-14.5); White Blood Count 5.9 K/mm3 (4.5-10.0)
[2019-09-05 05:05] LABS: Blood Urea Nitrogen 12 mg/dL (9-20); Calcium 8.8 mg/dL (8.4-10.2); Carbon Dioxide 28 mmol/L (22-30); Chloride 100 mmol/L (98-107); Estimated CRCL calculation 72 ml/min; Estimated Glomerular Filt Rate > 60; Glucose 95 mg/dL (75-110); Potassium 4.2 mmol/L (3.4-5.0); Sodium 135 mmol/L (137-145)
[2019-09-05] MEDS: FUROSEMIDE 40 MG TABLET PO (09:15)
[2019-09-05] MEDS: TAMSULOSIN HCL 0.4 MG CAPSULE PO (09:15)
[2019-09-05] MEDS: DOCUSATE SODIUM 100 MG CAPSULE PO (09:15)
[2019-09-05] MEDS: LISINOPRIL 10 MG TABLET PO (09:15)
[2019-09-05] MEDS: hydrALAZINE HCL 25 MG TABLET PO (09:15)
[2019-09-05] MEDS: PANTOPRAZOLE 40 MG TABLET PO (09:15)
[2019-09-05] MEDS: FENTANYL 75 MCG/HR PATCH TRANSDERM (09:31)
--- NOTE | 2019-09-05 10:53 | PM.PNCARD ---
Progress Note: A&P Assessment and Plan (1) Elevated troponin: Code(s): R79.89 - Other specified abnormal findings of blood chemistry Status: Acute Assessment and Plan: Cardiac catheterization September 04, 2019: Severe [place] vessel CAD - 100% occlusion (chronic total occlusion) ostial LAD. High-grade about 70% in-stent restenosis ostial ramus intermedius; multiple stents are seen in the remainder of the ramus intermedius with diffuse mild in-stent restenosis. Patent previously placed stents in the dominant LCX; slightly sluggish blood flow in the left circumflex artery. Non-dominant RCA with severe diffuse disease in the proximal segment. Patent CONKLIN to LAD; occluded vein graft to one of the coronaries on the left side. Patent left subclavian artery. PCI - intravascular ultrasound-guided balloon angioplasty of distal left main-ostial ramus intermedius. Continue on dual antiplatelet therapy with aspirin and Plavix (uses brand only) for at least 1 month, then aspirin indefinitely as tolerated. He is scheduled to undergo hip surgery. If the he continues to have lifestyle limiting angina after surgery, then repeat PCI with stenting of distal left main/ostial ramus intermedius can be considered. Instructed that he may proceed with this hip surgery after October 04, 2019. Of note he has received his home medication of brand Plavix 75 mg daily. Nursing documentation confirms this. Not caring into these documents. (2) Chest pain: Qualifiers: Chest pain type: other chest pain Qualified Code(s): R07.89 - Other chest pain Code(s): R07.9 - Chest pain, unspecified Status: Acute Assessment and Plan: Catheterization as above (3) Coronary artery disease: Code(s): I25.10 - Atherosclerotic heart disease of [place] coronary artery without angina pectoris Status: Acute Assessment and Plan: History of CABG and multiple stents (4) HTN (hypertension): Code(s): I10 - Essential (primary) hypertension Status: Acute Assessment and Plan: Occasional elevated blood pressures but for the most part controlled (5) Pre-syncope: Code(s): R55 - Syncope and collapse Status: Acute Assessment and Plan: Possibly vagal. Plan is for an implantable loop recorder. He is to follow up with Dr Sullivan Additional Plan OK to discharge from cardiac standpoint Cardiology discharge orders have been entered. Plan discussed with 1100 09/05/2019 Subjective Interval history: Follow-up for: coronary artery disease status post CABG and reported 14 stents, chest pain, near-syncope Follow-up for September 05, 2019: Feeling better this morning. Denied chest discomfort that he describes as a pressure in the center of his chest. Lightheadedness episodes with no chest discomfort. Denied shortness of breath or palpitations. Review of Systems Review of Systems: All systems reviewed & are unremarkable except as noted in HPI and below Constitutional: Constitutional: Denies excessive sweating, Reports fatigue and Reports headache(s) ENT: Reports headache(s), Denies lip swelling and Denies neck pain Cardiovascular: Cardiovascular: Reports pedal edema and Reports lightheadedness Musculoskeletal: Musculoskeletal: Reports neck pain Integumentary/Breasts: Skin/Breast: Reports rash Psychiatric: Psychiatric: Reports anxiety Endocrine: Endocrine: Denies excessive sweating, Reports fatigue and Denies flushing Hematologic/Lymphatic: Hematologic/Lymphatic: Denies easy bleeding Allergic/Immunologic: Allergic/Immunologic: Denies lip swelling Exam Const: General: comfortable and no acute distress HENMT: General nose exam: nares normal Eyes: Sclera: sclerae normal Neck: Neck: supple and no JVD Resp: Effort & Inspection: normal respiratory effort Auscultation: clear to auscultation bilaterally Cardio: Rate: regular rate Rhythm: regular rhythm Heart soun
--- NOTE | 2019-09-05 11:37 | PM.DS ---
DS: Diagnosis Admitting Diagnosis Admitting Diagnosis: Other specified abnormal findings of blood chemistry Discharge Diagnosis (1) Chest pain: Qualifiers: Chest pain type: other chest pain Qualified Code(s): R07.89 - Other chest pain Code(s): R07.9 - Chest pain, unspecified Status: Acute Assessment and Plan: Patient is 78-year-old male with a past medical history of coronary artery disease with CABG and 14 stents, had elevated troponins, pt had heart cath yesterday which was abnormal. Patient was monitored overnight. Seen by Cardiology. Stable for discharge. Patient had cardiac catheterization on September 04, 2019: Severe [place] vessel CAD - 100% occlusion (chronic total occlusion) ostial LAD. High-grade about 70% in-stent restenosis ostial ramus intermedius; multiple stents are seen in the remainder of the ramus intermedius with diffuse mild in-stent restenosis. Patent previously placed stents in the dominant LCX; slightly sluggish blood flow in the left circumflex artery. Non-dominant RCA with severe diffuse disease in the proximal segment. Patent CONKLIN to LAD; occluded vein graft to one of the coronaries on the left side. Patent left subclavian artery. PCI - intravascular ultrasound-guided balloon angioplasty of distal left main-ostial ramus intermedius. Cardiology recommends- dual antiplatelet therapy with aspirin and Plavix for at least 1 month, then aspirin forever. Pt is scheduled to undergo hip surgery. Patient can have his hip surgery on October 04. If the he continues to have lifestyle limiting angina after surgery, patient should have repeat PCI. (2) Elevated troponin: Code(s): R79.89 - Other specified abnormal findings of blood chemistry Status: Acute Assessment and Plan: Patient with elevated tropes cardiac catheterization yesterday which was abnormal (3) Coronary artery disease: Code(s): I25.10 - Atherosclerotic heart disease of [place] coronary artery without angina pectoris Status: Acute Assessment and Plan: Status post CABG and up to 14 stents, in . Continue aspirin, Plavix, and statin. (4) HTN (hypertension): Code(s): I10 - Essential (primary) hypertension Status: Acute Assessment and Plan: Patient under stress with persistent chest pain, Bp still slightly high due to stress of chest pain. (5) Arrhythmia: Code(s): I49.9 - Cardiac arrhythmia, unspecified Status: Acute Assessment and Plan: History of atrial fibrillation, rate controlled on telemetry. seen by mechanical assembly technician. Stable for discharge DS: Summary Time Spent with Patient Time attestation: Total time spent providing and/or coordinating discharge services:38 minutes Exam Narrative: Exam Narrative: General: Well-developed HEENT: Normocephalic Respiratory: Lungs are clear to auscultation bilaterally. Cardiovascular: Regular rate and rhythm Gastrointestinal: Abdomen is soft, nontender Skin: Warm and dry. Extremities: No cyanosis or clubbing. Neurological: Alert. Cranial nerves 2-12 are grossly intact. Speech is clear. No facial asymmetry. No gross focal deficits to casual conversation. Psychiatric: Pleasant and cooperative with normal mood and affect. Const: General: comfortable and no acute distress Other: General: Well-developed HEENT: Normocephalic Respiratory: Lungs are clear to auscultation bilaterally. Cardiovascular: Regular rate and rhythm Gastrointestinal: Abdomen is soft, nontender Skin: Warm and dry. Extremities: No cyanosis or clubbing. Neurological: Alert. Cranial nerves 2-12 are grossly intact. Speech is clear. No facial asymmetry. No gross focal deficits to casual conversation. Psychiatric: Pleasant and cooperative with normal mood and affect. HENMT: General nose exam: nares normal Mouth: Yes moist mucous membranes Other: General: Well-developed HEENT: Normocephalic Respiratory: Lungs
== END 2019-09-05 13:45 | disposition home or self-care (01) ==
LOC: ANHED 14:10 → ANHIMU 14:25
PROVIDERS: Family Medicine; Internal Medicine Cardiovascular Disease; Admitting Provider Internal Medicine; Emergency Provider Emergency Medicine; Visit Provider Family Medicine
PROC: 02703ZZ Dilation of Coronary Artery, One Artery, Percutaneous Approach (ICD-10-PCS; CPT 92920; 2019-09-04 08:30)
DX: I25.10 Atherosclerotic heart disease of native coronary artery without angina pectoris (principal); I25.82 Chronic total occlusion of coronary artery; T82.855A Stenosis of coronary artery stent, initial encounter; I25.810 Atherosclerosis of coronary artery bypass graft(s) without angina pectoris; Z95.5 Presence of coronary angioplasty implant and graft; R07.89 Other chest pain; R79.89 Other specified abnormal findings of blood chemistry; I49.9 Cardiac arrhythmia, unspecified; R55 Syncope and collapse; I10 Essential (primary) hypertension; I71.4 Abdominal aortic aneurysm, without rupture; J44.9 Chronic obstructive pulmonary disease, unspecified; K29.70 Gastritis, unspecified, without bleeding; G47.33 Obstructive sleep apnea (adult) (pediatric); Z87.891 Personal history of nicotine dependence; Z96.651 Presence of right artificial knee joint
CPT/HCPCS: 36415; 71045; 80048; 80053; 84484; 85025; 85027; 85610; 85730; 92920; 92978; 93005; 93455; 96372; 99285; A9270; C1725; C1753; C1760; C1769; C1887; C1894; G0269; G0378; J0583; J1644; J1650; J2250; J3010; J7040

== ENCOUNTER 2019-11-25 18:44 | Observation (INO) | payer MEDICARE, SELFPAY ==
--- NOTE | ~2019-11-25 | XR_ITS ---
EXAMINATION: XR chest 2V EXAM DATE: 11/25/2019 19:19 INDICATION: Chest pain, high blood pressure. TECHNIQUE: Frontal and lateral projections of the chest obtained and reviewed. Comparison is made to prior examination from 09/29/2019. FINDINGS: Sternotomy wires. Cardiac stents. Cardiac monitoring device. Thoracolumbar fusion hardware . Some chronic bibasilar opacities likely scarring unchanged. No confluent consolidation, pneumothora x or pleural effusion suspected. There are bony degenerative changes. Accounting for differences in t echnique, there is no significant interval change. IMPRESSION: No acute cardiopulmonary findings. Reviewed, dictated and finalized at location A. PROGRAMMER
[2019-11-25 18:43] VITALS: BP 187/77; PULSE 58; RESP 16; TEMP 36.9; O2SAT 100
--- NOTE | 2019-11-25 18:51 | ECG_ITS ---
Measurements Intervals [place] Rate: 61 P: 11 AL: 160 QRS: 60 QRSD: 116 T: 19 QT: 419 QTc: 423 Interpretive Statements SINUS RHYTHM VENTRICULAR PREMATURE COMPLEX INTRAVENTRICULAR CONDUCTION DELAY BORDERLINE ST ABNORMALITY- INFERIOR LEADS BASELINE ARTIFACT- I, III, AVL BORDERLINE ECG Electronically Signed On 11-25-2019 19:26:40 CASKET UPHOLSTERER by Zachary Hoang D.O.
--- NOTE | 2019-11-25 19:02 | ED.GENADULT ---
HPI - General Adult General Chief complaint: Unspecified Stated complaint: htn cp Time Seen by Provider: 11/25/19 19:03 Source: patient Mode of arrival: ambulatory Limitations: no limitations History of Present Illness HPI narrative: A 79 y/o male presents to the ED with c/o CP that he describes as a tightness in character. Pt states the pain began at 5:00 PM while he was sitting down about to eat dinner. Pt then checked his BP to be 205/90. Pt took Nitro and 4 ASA 81 mg which mostly alleviated his pain. Pt has a PSHx of a cardiac cath in August [address] Trimble and had some areas cleaned and ballooned at the time. Pt also wears a heart monitor. Pt notes that he started experiencing right ear pain on Tuesday (5 days ago) and was diagnosed with an ear infection and started on antibiotics on Tuesday (2 days ago). Pt wears a Fentanyl path due to his PSHx of 2 major back surgeries and is also on Eureka. Pt last took Eureka at 4:30 PM. He reports a frontal PALACIOS, sinus drainage, and sinus congestion, but denies a fever, a cough, N/V, SOB, and ABD pain. Pt notes that he had right hip surgery 3.[address] Edwards and is on Plavix. Onset (ago): hour(s) (5:00 PM) Location: chest Quality: other (tightness) Treatments prior to arrival: aspirin (4 ASA 81 mg) and other (Nitro) Related Data Home Medications Medication Instructions Recorded Confirmed Atrovent HFA 1 puff INHALATION QID 09/01/19 09/01/19 Dulera 2 puff INHALATION Q12H 09/01/19 09/01/19 aspirin 81 mg PO QPM 09/01/19 09/01/19 clopidogrel [Plavix] 75 mg PO DAILY 09/01/19 09/01/19 ergocalciferol (vitamin D2) 50,000 unit PO WEEKLY 09/01/19 09/01/19 fentanyl 1 patch TRANSDERMAL Q72H 09/01/19 09/01/19 finasteride 5 mg PO QPM 09/01/19 09/01/19 furosemide 40 mg PO DAILY 09/01/19 09/01/19 hydralazine 25 mg PO BID 09/01/19 09/01/19 hydrocodone-acetaminophen 1 tablet PO Q6H PRN 09/01/19 09/01/19 lisinopril 10 mg PO BID 09/01/19 09/01/19 ropinirole 0.5 mg PO HS 09/01/19 09/01/19 simvastatin 40 mg PO QPM 09/01/19 09/01/19 tamsulosin 0.4 mg PO DAILY 09/01/19 09/01/19 testosterone cypionate See Rx Instructions .ROUTE .COMPLEX 09/01/19 09/01/19 Allergies Allergy/AdvReac Type Severity Reaction Status Date / Time clopidogrel Allergy Mild Unknown Verified 11/25/19 18:48 albuterol Allergy Unknown Verified 11/25/19 18:48 metoprolol [From Toprol XL] Allergy Unknown Verified 11/25/19 18:48 Review of Systems Review of Systems: All systems reviewed & are unremarkable except as noted in HPI and below Constitutional: Constitutional: Denies fever(s) ENT: Comments: Reports: right ear pain, sinus drainage, sinus congestion Cardiovascular: Cardiovascular: Reports chest pain Respiratory: Respiratory: Denies cough and Denies dyspnea Gastrointestinal: Gastrointestinal: Denies abdominal pain, Denies nausea and Denies vomiting Neurologic: Reports headache(s) (frontal) [facility] Past Medical History Medical History (Updated 11/25/19 @ 22:27 by Isha Rae MD) Abdominal aortic aneurysm He is followed by Dr. Wilks at [facility]. BPH (benign prostatic hyperplasia) Chronic pain Patient has chronic back pain and is on fentanyl patch COPD (chronic obstructive pulmonary disease) Coronary artery disease Status post CABG in 1990 or 1998 with upwards of 14 cardiac stents since that time. Gastric ulcer HTN (hypertension) Obstructive sleep apnea on CPAP Surgical History Surgical History (Updated 11/25/19 @ 19:29 by Betty Kuhn) H/O heart artery stent x14 History of cardiac cath History of colonoscopy History of hip surgery right History of tonsillectomy At the age of 28 History of total right knee replacement Two thousand. Hx of CABG Performed in 1990 or 1998. Previous back surgery x2 in 2017 in 2018 with extensive fusion, done at [facility] in [place]. Family History Family History Father Acute myocardi
[2019-11-25 19:09] LABS: Basophils Percent Auto 0.7 % (0.2-1.2); Eosinophils Absolute Auto 0.1 K/mm3 (0-0.3); Eosinophils Percent Auto 2.6 % (0-4.4); Hematocrit 41.2 % (42.0-52.0); Hemoglobin 13.1 g/dL (14.0-18.0); Immature Granulocyte Absolute 0.01 K/mm3 (0.00-0.031); Immature Granulocyte Percent A 0.2 % (0-0.5); Lymphocytes Absolute Auto 1.32 K/mm3 (0.9-3.2); Mean Corpuscular HGB Conc 31.8 g/dl (32-36); Mean Corpuscular Hemoglobin 31.7 pg (26-34); Mean Corpuscular Volume 99.8 fl (80-100); Mean Platelet Volume 9.3 fl (7.4-10.4); Monocytes Absolute Auto 0.4 K/mm3 (0.1-0.6); Neutrophils Absolute Auto 2.7 K/mm3 (1.3-6.7); Neutrophils Percent Auto 58.5 % (45.5-73.1); Platelet Count Result 133 k/mm3 (150-375); Red Blood Count 4.13 M/mm3 (4.6-6.20); Red Cell Distribution Width 13.4 % (11.5-14.5); White Blood Count 4.6 K/mm3 (4.5-10.0)
[2019-11-25 19:19] LABS: Prothrombin Time 12.7 Seconds (11.1-14.7)
[2019-11-25 19:20] LABS: Partial Thromboplastin Time 29.8 SECONDS (22.3-36.8)
[2019-11-25 19:21] LABS: Blood Urea Nitrogen 15 mg/dL (9-20); Calcium 9.4 mg/dL (8.4-10.2); Carbon Dioxide 27 mmol/L (22-30); Chloride 99 mmol/L (98-107); Estimated CRCL calculation 63 ml/min; Estimated Glomerular Filt Rate > 60; Glucose 94 mg/dL (75-110); Potassium 4.3 mmol/L (3.4-5.0); Sodium 137 mmol/L (137-145)
[2019-11-25 19:32] LABS: Troponin I < 0.012 ng/mL (0.000-0.034)
[2019-11-25] MEDS: NITROGLYCERIN OINTMENT 1 INCH DOSE TRANSDERM (19:53)
--- NOTE | 2019-11-25 20:02 | PC.NURSE ---
Pt states feeling dizzy/lightheaded and head pressure. Pt was just given nitro paste. ERP aware. Vital stable.
--- NOTE | 2019-11-25 20:16 | PC.NURSE ---
PT REPORTS NO MORE HEADACHE OR DISCOMFORT AT THIS TIME
[2019-11-25 20:30] VITALS: BP 170/88; PULSE 71; RESP 18; O2SAT 97
[2019-11-25 21:27] LABS: Troponin I < 0.012 ng/mL (0.000-0.034)
[2019-11-25 22:25] VITALS: BP 155/82; PULSE 98; RESP 18; O2SAT 98
[2019-11-25 22:43] VITALS: BP 167/83; PULSE 62; RESP 18; TEMP 36.7; O2SAT 100; BMI 28.5
--- NOTE | 2019-11-25 22:49 | ADMGEN ---
This patient, Jan Adams, was admitted to IMU Room 206-02. Patient/family oriented to hospital policies and general routines including ID bracelet, bed and alarms, visiting hours, pain management, procedures, bathroom and other care routines, personal items, smoking policy, room service/diet, and visiting hours. Valuables list has been completed. Information on how to activate the Rapid Response Team has been discussed. Patient/Family are encouraged to report perceived risks to care and to ask questions if they do not understand what they are told or what they should do.
[2019-11-25 22:51] VITALS: BMI 28.5
[2019-11-26] VITALS (15 sets, daily range): BP systolic 130–180; BP diastolic 66–83; PULSE 54–80; RESP 16–22; TEMP 36.2–37.5; O2SAT 96–100
[2019-11-26 01:15] LABS: Troponin I < 0.012 ng/mL (0.000-0.034)
--- NOTE | 2019-11-26 04:49 | PM.IMHP ---
H&P: HPI History of Present Illness Chief complaint: Chest pain and high blood pressure Narrative: Date and time of patient contact: 11/26/2019 at 3:15 a.m. Jan Adams is a 79 year old male with a past medical history of coronary artery disease status post CABG and numerous stents who presented to the ER from home via EMS with chest pain. Patient reports that around 5:00 p.m. while sitting down and eating dinner he began having tightness in his chest similar to his prior episodes of angina. The tightness was moderate to severe in intensity. He took a nitro and 4 baby aspirin. And I trend baby aspirin which helped this pain but did not relieve it completely. He checked his blood pressure about 10 minutes or so after chest pain is started and it was high at 205/90 and when he became quite anxious about his chest pain is blood pressure jumped to 230 systolic. When is chest tightness continued in his blood pressure remained high he came into the ER. To the ER his blood pressure was 187/77 initially and 170/88 about 20 minutes after nitropaste applied. The patient received nitropaste with almost instant improvement in his chest pain. After the nitropaste was applied the patient did have some lightheadedness and head pressure. He received IV acetaminophen which relieved his headache. The patient had a cardiac catheterization in August [address] Trimble which demonstrated multi-vessel disease with balloon angioplasty to the distal left main ostial ramus intermedius which had 70% stenosis. Following the cardiac catheterization the patient reported that his chest tightness had improved for 2-3 weeks. He was not having dyspnea on exertion and was overall more functional. However, after about 3 weeks he he noticed that he was having some mild episodes of chest tightness and dyspnea on exertion. The patient did not feel a symptoms at that time were severe enough to stop him from having his right SI joint surgery. Tolerated his outpatient SI joint surgery on the 19 of October (Dr. Joaquin in [place]) without difficulty. The patient's blood pressure has been a little bit more elevated than usual due to some increased generalized pain following surgery. But for the most part his blood pressures have ranged between 130 and 160 systolic. He has had several other episodes of chest tightness since his surgical procedure but this 1 was bad enough to make him truly concerned to come in. He denies any nausea, diaphoresis, or radiation of pain to his arms or up to his jaw. But he reiterates that this exactly like the chest pain he had prior to his last catheterization. The patient does have an event monitor in place. He denies any palpitations. His sales representative electric service is Dr. Frank Mercedes. During his last hospitalization the possibility of her repeat cardiac catheterization if he continued to have lifestyle limiting angina for stent placement in the distal left main/ostial ramus intermedius. The patient is hopeful that he may be able to get a stent so that he can be more active/comfortable. The patient had not been feeling very good in general for the last 48 hours as he has bilateral your infections right greater than left. He is currently on cefuroxime and ear drops as outpatient. He has not been having any fevers or chills. He started having right ear pain 5 days ago and started antibiotics 2 days ago. His symptoms are slowly improving. He reports some sinus congestion with a cough productive of yellow sputum due to postnasal drip. He has had intermittent frontal headache. He also has some mild sinus congestion. He has not been having any fevers, abdominal pain or changes in bowel habits. He has not noticed any lower extremity swelling, orthopnea or weight gain. The patient was able to sit up in bed unassisted without the use of his from an almost completely reclined position. Review of Systems Review of Systems: Narrative: Except as docu
[2019-11-26 05:20] LABS: Basophils Absolute Auto 0.1 K/mm3 (0.0-0.1); Basophils Percent Auto 0.9 % (0.2-1.2); Eosinophils Absolute Auto 0.1 K/mm3 (0-0.3); Eosinophils Percent Auto 2.4 % (0-4.4); Hematocrit 38.9 % (42.0-52.0); Hemoglobin 12.4 g/dL (14.0-18.0); Immature Granulocyte Absolute 0.02 K/mm3 (0.00-0.031); Immature Granulocyte Percent A 0.4 % (0-0.5); Immature Platelet Fraction Pct 1.9 % (0.9-11.2); Lymphocytes Absolute Auto 1.42 K/mm3 (0.9-3.2); Lymphocytes Percent Auto 26.7 % (18.3-44.2); Mean Corpuscular HGB Conc 31.9 g/dl (32-36); Mean Corpuscular Hemoglobin 31.6 pg (26-34); Monocytes Absolute Auto 0.5 K/mm3 (0.1-0.6); Neutrophils Absolute Auto 3.2 K/mm3 (1.3-6.7); Neutrophils Percent Auto 60.6 % (45.5-73.1); Platelet Count Result 135 k/mm3 (150-375); Red Blood Count 3.93 M/mm3 (4.6-6.20); Red Cell Distribution Width 13.2 % (11.5-14.5); White Blood Count 5.3 K/mm3 (4.5-10.0)
[2019-11-26 05:21] LABS: Alanine Aminotransferase 11 U/L (4-50); Albumin Level 3.9 g/dL (3.5-5.1); Alkaline Phosphatase 83 U/L (38-126); Aspartate Amino Transferase 24 U/L (17-59); Bilirubin,Total 0.5 mg/dL (0.2-1.3); Blood Urea Nitrogen 16 mg/dL (9-20); Calcium 9.1 mg/dL (8.4-10.2); Carbon Dioxide 25 mmol/L (22-30); Chloride 100 mmol/L (98-107); Estimated CRCL calculation 68 ml/min; Estimated Glomerular Filt Rate > 60; Glucose 95 mg/dL (75-110); Potassium 4.1 mmol/L (3.4-5.0); Sodium 135 mmol/L (137-145)
[2019-11-26] MEDS: hydrALAZINE HCL 25 MG TABLET PO ×2 (07:51→16:09)
[2019-11-26] MEDS: CEFUROXIME AXETIL 250 MG TABLET 1 EACH PO ×2 (07:51→16:08)
[2019-11-26 08:54] LABS: Magnesium 2.2 mg/dL (1.6-2.3)
[2019-11-26] MEDS: FUROSEMIDE 20 MG TABLET PO (09:22)
[2019-11-26] MEDS: lisinopriL 10 MG TABLET PO ×2 (09:25→16:09)
[2019-11-26] MEDS: TAMSULOSIN HCL 0.4 MG CAPSULE PO (09:26)
--- NOTE | 2019-11-26 14:09 | ECG_ITS ---
Measurements Intervals [place] Rate: 69 P: -10 MO: 138 QRS: 55 QRSD: 110 T: 16 QT: 402 QTc: 433 Interpretive Statements SINUS RHYTHM VENTRICULAR PREMATURE COMPLEXES POSSIBLE LEFT ATRIAL ENLARGEMENT BORDERLINE R WAVE PROGRESSION, ANTERIOR LEADS BORDERLINE ST-T WAVE ABNORMALITY- INFERIOR LEADS BORDERLINE ECG Electronically Signed On 11-26-2019 14:40:30 ARTIFICIAL FLOWERS SUPERVISOR by Zachary Hoang D.O.
--- NOTE | 2019-11-26 14:31 | PM.CNCAR ---
Assessment and Plan Additional Plan 79-year-old man with coronary disease, remote history of CABG and known high-grade stenosis of the distal left main, proximal OM and circumflex resulting in recurrent ischemic symptoms. Not surprisingly relative relief of ischemic symptomatology following simple balloon angioplasty of this left main proximal circumflex disease 2 months ago was relatively short-lived. Effective PCI of this disease would likely involve stenting of the distal left main, OM and circumflex bifurcation using bifurcation stenting, DK crush technique which is not reasonable to attempt here at this hospital. Fortunately he is not having an acute coronary syndrome and he is otherwise clinically stable. My recommendation is to contact interventional colleagues downtown at [place] and transfer him to that institution for follow-up angiography and hopefully effective PCI History of Present Illness History of Present Illness Consult date/time: Date of service: 11/26/19 14:31 Consult reason: chest pain Reason For Visit: Chest pain and high blood pressure Narrative: This is a 79-year-old patient with well known coronary artery disease who follows with Dr. Gamino of our practice and was admitted to the hospital yesterday in the evening with complaint of recurrent chest pain. The patient is known to have multivessel disease had a coronary bypass grafting in the remote past. He did well until through the year 2018 had a series of admissions to this hospital with chest pain. He was eventually brought to the cardiac catheterization lab in August [address] Trimble and found to have high-grade stenosis in the distal left main extending into the proximal circumflex system involving the large OM/ramus and the trunk of the circumflex in its ostial segment as well. The patient underwent PCI of this involving simple balloon angioplasty of the distal left main into the OM/ramus with angiographically minimal improvement in the disease in my opinion. I have just reviewed those angiograms prior to seeing this gentleman in consultation this afternoon. There was still high-grade stenosis in the trunk of the circumflex and at that time the patient's LAD was found to be totally occluded at its ostium and it is supplied by a his left internal mammary artery. According to the previous records all this old vein grafts from his CABG are known to be occluded. The patient did not wish to have more aggressive PCI other than angioplasty at that time because he was anticipating surgery on his sacroiliac joint and he knew that PCI would commit him to dual anti-platelet therapy and cancel his operation. He states that his ischemic chest pain was improved significantly for no more than 2-3 weeks following the intervention and recurred following that. He did not bring this to any of his physicians attention because he knew that it would likely cancel his noncardiac operation. He states his chest pain became rather severe again last night and so he finally came into the emergency room where he was evaluated and admitted to IMU. Since admission his biomarkers fortunately are negative for evidence of acute myocardial necrosis. His electrocardiogram shows sinus rhythm with poor R-wave progression small inferior Q-waves and some PVCs there is no significant ST segment deviation or acute T-wave abnormalities. The PCI note from August of this year some doctor call indicates that prior to that I believe in 2012 the patient had PCI of this done as well from the left main into the OM/ramus branch at [facility] involving stenting of this area. Angiographically I did not appreciate obvious stent material in the left main but there is obvious stent material in the ramus branch. In this setting of seeing the patient in consultation today. Review of Systems Constitutional: Constitutional: Reports no additional constitutional complaints Eyes: Eyes: Reports no additional eye complaints
[2019-11-26] MEDS: ACETAMINOPHEN 325 MG TABLET 650 MG PO (14:34)
[2019-11-26] MEDS: ENOXAPARIN 40 MG/0.4 ML SYRINGE SUB-Q (14:39)
[2019-11-26 15:12] LABS: Troponin I < 0.012 ng/mL (0.000-0.034)
[2019-11-26] MEDS: ASPIRIN 81 MG CHEWABLE TABLET PO (16:08)
--- NOTE | 2019-11-26 18:12 | PM.IMPN ---
Progress Note: A&P Assessment and Plan (1) Chest pain: Qualifiers: Chest pain type: unspecified Qualified Code(s): R07.9 - Chest pain, unspecified Code(s): R07.9 - Chest pain, unspecified Status: Acute Assessment and Plan: 11/26/19 18:12 Patient is 79-year-old male with severe coronary artery disease states he has a 14 stents patient states he developed the chest pain his pain was persisting he noticed his blood pressure was rising is starting blood pressure was 203 patient to nitroglycerin in 4 baby aspirin however the pain was persisting patient came to emergency department his systolic blood pressure was in upper 180 patient was given nitro paste patient did improve chest tightness and lowered his blood pressure, present time patient states the chest pain is better his blood pressure is getting better he denies any complaint of chest pain palpitation fever or chills, he was seen by his director drug patient had a cardiac catheterization about 2 months ago and had a balloon Angiography patient did improve his symptoms, after reviewing his old chart cardiology has come to conclusion patient will benefit from going to the tertiary care for further evaluation and possible treatment of his severe coronary artery disease awaiting transfer (2) Coronary artery disease: Qualifiers: Coronary Disease-Associated Artery/Lesion type: unspecified vessel or lesion type [place] vs. transplanted heart: [place] heart Associated angina: with unstable angina Qualified Code(s): I25.110 - Atherosclerotic heart disease of [place] coronary artery with unstable angina pectoris Code(s): I25.10 - Atherosclerotic heart disease of [place] coronary artery without angina pectoris Status: Acute Assessment and Plan: Patient's home Plavix and aspirin has been continued. The patient received nitropaste in the ER x1. He has not had a recurrence of his chest pain. Nitro tablets are available if recurrent chest pain develops. Will continue patient's home Plavix, aspirin, simvastatin, and lisinopril. The patient is not on beta-miguel ángel therapy due to baseline bradycardia. Awaiting recommendations from Cardiology (3) HTN (hypertension): Qualifiers: Hypertension type: essential hypertension Qualified Code(s): I10 - Essential (primary) hypertension Code(s): I10 - Essential (primary) hypertension Status: Acute Assessment and Plan: Uncontrolled hypertension. The patient's chest pain could have been due to malignant hypertension verses patient's blood pressure being elevated due to patient's actual chest pain symptoms. The patient had almost immediate improvement in his blood pressure with relief of his chest pain. Will resume the patient's home hydralazine, lisinopril, (4) Acute right otitis media: Code(s): H66.91 - Otitis media, unspecified, right ear Status: Acute Assessment and Plan: Continue home antibiotics. Subjective Date/time seen: 11/26/19 18:12 Patient is 79-year-old male with severe coronary artery disease states he has a 14 stents patient states he developed the chest pain his pain was persisting he noticed his blood pressure was rising is starting blood pressure was 203 patient to nitroglycerin in 4 baby aspirin however the pain was persisting patient came to emergency department his systolic blood pressure was in upper 180 patient was given nitro paste patient did improve chest tightness and lowered his blood pressure, present time patient states the chest pain is better his blood pressure is getting better he denies any complaint of chest pain palpitation fever or chills, he was seen by his director drug patient had a cardiac catheterization about 2 months ago and had a balloon Angiography patient did improve his symptoms, after reviewing his old chart cardiology has come to conclusion patient will benefit from going to the tertiary care for further evaluation and p
--- NOTE | 2019-11-26 18:21 | PM.TDS ---
Transfer Discharge Sum: Prov Provider Date of admission: 11/25/19 21:20 Primary care physician: Rosendo HoMD Admitting clinician: Roxie Salinas DO Consults: 11/25/19 21:22 Consult to Physician Routine Comment: Consulting Provider: Alan Velasquez Reason for consultation: CAD , chest pain Has provider been notified: Yes DS: Diagnosis Admitting Diagnosis Admitting Diagnosis: Chest pain, unspecified Transfer Discharge Sum: Med Medications Active and Home Medications: Home Medications Atrovent HFA 1 puff INHALATION QID 09/01/19 [History Confirmed 11/25/19] Dulera 2 puff INHALATION Q12H 09/01/19 [History Confirmed 11/25/19] aspirin 81 mg PO QPM 09/01/19 [History Confirmed 11/25/19] clopidogrel [Plavix] 75 mg PO DAILY 09/01/19 [History Confirmed 11/25/19] ergocalciferol (vitamin D2) 50,000 unit PO WEEKLY 09/01/19 [History Confirmed 11/25/19] fentanyl 1 patch TRANSDERMAL Q72H 09/01/19 [History Confirmed 11/25/19] finasteride 5 mg PO QPM 09/01/19 [History Confirmed 11/25/19] furosemide 20 mg PO DAILY 09/01/19 [History Confirmed 11/25/19] hydralazine 25 mg PO BID 09/01/19 [History Confirmed 11/25/19] hydrocodone-acetaminophen 2 tablet PO Q6H PRN 09/01/19 [History Confirmed 11/25/19] lisinopril 10 mg PO BID 09/01/19 [History Confirmed 11/25/19] ropinirole 0.5 mg PO HS 09/01/19 [History Confirmed 11/25/19] simvastatin 40 mg PO QPM 09/01/19 [History Confirmed 11/25/19] tamsulosin 0.4 mg PO DAILY 09/01/19 [History Confirmed 11/25/19] testosterone cypionate See Rx Instructions .ROUTE .COMPLEX 09/01/19 [History Confirmed 11/25/19] cefuroxime axetil 250 mg PO BID 11/25/19 [History Confirmed 11/25/19] gkaicawf-mcefyllqr-VW 1 % RIGHTEAR QID 11/25/19 [History Confirmed 11/25/19] Active Medications Hydrocodone Bitart/Acetaminophen ([place] 7.5-325 Mg) 2 tab PO Q6H PRN PRN Reason: Pain Rated 7-10 Last Admin: 11/26/19 15:45 Dose: 2 tab Documented by: Hydrocodone Bitart/Acetaminophen ([place] 7.5-325 Mg) 1 tab PO Q6H PRN PRN Reason: Pain Rated 4-6 Aspirin (Aspirin Chewable) 81 mg PO DAILY@1700 [facility] Last Admin: 11/26/19 16:08 Dose: 81 mg Documented by: Budesonide/Formoterol Fumarate (Symbicort 80-4.5 Mcg (*Sp) Inhaler) 2 puff INHALATION Q12HRT [facility] Last Admin: 11/26/19 08:27 Dose: Not Given Documented by: Enoxaparin Sodium (Lovenox) 40 mg SUB-Q DAILY [facility] Last Admin: 11/26/19 14:39 Dose: 40 mg Documented by: Fentanyl (Duragesic 75 Mcg Patch) 75 mcg TRANSDERM Q72H [facility] Finasteride (Proscar) 5 mg PO QPM [facility] Furosemide (Lasix Tablet) 20 mg PO DAILY [facility] Last Admin: 11/26/19 09:22 Dose: 20 mg Documented by: Hydralazine HCl (Apresoline Tablet) 25 mg PO BIDWM [facility] Last Admin: 11/26/19 16:09 Dose: 25 mg Documented by: Lisinopril (Prinivil) 10 mg PO BID [facility] Last Admin: 11/26/19 16:09 Dose: 10 mg Documented by: Nitroglycerin (Nitrostat Subl 0.4 Mg (1/150)) 0.4 mg SUBLINGUAL Q5MIN PRN PRN Reason: Chest Pain Ondansetron HCl (Zofran Inj) 4 mg IV PUSH Q4H PRN PRN Reason: Nausea Ropinirole HCl (Ropinirole Hcl) 0.5 mg PO HS [facility] Simvastatin (Zocor) 40 mg PO QPM [facility] Tamsulosin HCl (Flomax) 0.4 mg PO DAILY [facility] Last Admin: 11/26/19 09:26 Dose: 0.4 mg Documented by: Transfer Discharge Sum: Hosp Hospital Course Hospital course: Jan Adams is a 79 year old male Time Spent with Patient Time attestation: Total time spent providing and/or coordinating transfer services: DS: Data Data Completed and Pending Labs on day of discharge: Labs from last 24 hours 11/26/19 11/26/19 11/26/19 14:35 08:32 04:23 WBC RBC Hgb Hct MCV MCH MCHC RDW Plt Count MPV Immature Gran % (Auto) Neut % (Auto) Lymph % (Auto) [place] % (Auto) Eos % (Auto) Baso % (Auto) Lymph # (Auto) [place] # (Auto) Eos # (Auto) Baso # (Auto) Abs Immat Gran (auto) Absolute Neuts (auto) Absolute Nucleated RBC Nucleated RBC % % Immat
[2019-11-26] MEDS: SIMVASTATIN 20 MG TABLET 40 MG PO (18:52)
[2019-11-26] MEDS: FINASTERIDE 5 MG TABLET PO (18:52)
[2019-11-27] VITALS (15 sets, daily range): BP systolic 111–165; BP diastolic 50–80; PULSE 51–69; RESP 16–20; TEMP 36.3–37.1; O2SAT 96–100
[2019-11-27 05:05] LABS: Hematocrit 38.7 % (42.0-52.0); Hemoglobin 12.4 g/dL (14.0-18.0); Immature Platelet Fraction Pct 1.8 % (0.9-11.2); Mean Corpuscular Hemoglobin 31.7 pg (26-34); Mean Platelet Volume 9.6 fl (7.4-10.4); Platelet Count Result 149 k/mm3 (150-375); Red Blood Count 3.91 M/mm3 (4.6-6.20); Red Cell Distribution Width 13.3 % (11.5-14.5); White Blood Count 6.3 K/mm3 (4.5-10.0)
[2019-11-27 05:22] LABS: Blood Urea Nitrogen 15 mg/dL (9-20); Calcium 9.1 mg/dL (8.4-10.2); Carbon Dioxide 26 mmol/L (22-30); Chloride 101 mmol/L (98-107); Estimated CRCL calculation 77 ml/min; Estimated Glomerular Filt Rate > 60; Glucose 98 mg/dL (75-110); Potassium 4.4 mmol/L (3.4-5.0); Sodium 137 mmol/L (137-145)
[2019-11-27] MEDS: CEFUROXIME AXETIL 250 MG TABLET 1 EACH PO ×2 (08:51→17:52)
[2019-11-27] MEDS: FUROSEMIDE 20 MG TABLET PO (08:52)
[2019-11-27] MEDS: ENOXAPARIN 40 MG/0.4 ML SYRINGE SUB-Q (08:52)
[2019-11-27] MEDS: hydrALAZINE HCL 25 MG TABLET PO ×2 (08:52→17:53)
[2019-11-27] MEDS: lisinopriL 10 MG TABLET PO ×2 (08:53→17:53)
[2019-11-27] MEDS: TAMSULOSIN HCL 0.4 MG CAPSULE PO (08:53)
[2019-11-27] MEDS: NITROGLYCERIN SL 0.4 MG TABLET SUBLINGUAL ×2 (10:49→10:54)
--- NOTE | 2019-11-27 11:03 | PC.NURSE ---
pt called out about 1015am and stated that he was dizzy. He was sitting up on his bedside eating breakfast. BP was 165/75 HR 68 O2 100%. After VS were taken he stated that he felt much better and needed nothing more at the time. At 1040 rounded on him and he was laying in bed and stated that he was feeling really bad and wanted some Nitro. At 1049 RN gave first Nitro and acquired an EKG, at 1054 gave a second Nitro. At 1059 pt stated that all symptoms had resolved and no longer needed the third Nitro. was notified.
[2019-11-27] MEDS: ASPIRIN 81 MG CHEWABLE TABLET PO (17:52)
[2019-11-27] MEDS: FINASTERIDE 5 MG TABLET PO (17:53)
[2019-11-27] MEDS: SIMVASTATIN 20 MG TABLET 40 MG PO (17:54)
--- NOTE | 2019-11-27 18:34 | PM.IMPN ---
Progress Note: A&P Assessment and Plan (1) Chest pain: Qualifiers: Chest pain type: unspecified Qualified Code(s): R07.9 - Chest pain, unspecified Code(s): R07.9 - Chest pain, unspecified Status: Acute Assessment and Plan: Patient is 79-year-old male with severe coronary artery disease states he has a 14 stents patient states he developed the chest pain and came to the emergency room., he was seen by his extrusion die corrector patient had a cardiac catheterization about 2 months ago and had a balloon Angiography patient did improve his symptoms, after reviewing his old chart cardiology has come to conclusion patient will benefit from going to the tertiary care for further evaluation and possible treatment of his severe coronary artery disease awaiting transfer (2) Coronary artery disease: Qualifiers: Coronary Disease-Associated Artery/Lesion type: unspecified vessel or lesion type [place] vs. transplanted heart: [place] heart Associated angina: with unstable angina Qualified Code(s): I25.110 - Atherosclerotic heart disease of [place] coronary artery with unstable angina pectoris Code(s): I25.10 - Atherosclerotic heart disease of [place] coronary artery without angina pectoris Status: Acute Assessment and Plan: Patient's home Plavix and aspirin has been continued. The patient received nitropaste in the ER x1. . Nitro tablets are available if recurrent chest pain develops. Will continue patient's home Plavix, aspirin, simvastatin, and lisinopril. The patient is not on beta-miguel ángel therapy due to baseline bradycardia. If further chest pain full anticoagulation (3) HTN (hypertension): Qualifiers: Hypertension type: essential hypertension Qualified Code(s): I10 - Essential (primary) hypertension Code(s): I10 - Essential (primary) hypertension Status: Acute Assessment and Plan: The patient's chest pain could have been due to elevated hypertension verses patient's blood pressure being elevated due to patient's actual chest pain symptoms. The patient had almost immediate improvement in his blood pressure with relief of his chest pain. resumed the patient's home hydralazine, lisinopril, (4) Acute right otitis media: Code(s): H66.91 - Otitis media, unspecified, right ear Status: Acute Assessment and Plan: Continue home antibiotics. Subjective Date/time seen: 11/27/19 18:34 Interval history: Date of visit and 11/27/2019. 79-year-old white male known coronary disease COPD admitted with chest pain seen by Cardiology and awaiting bed for transfer to [place]. Occasional mild chest pain nothing significant Exam Narrative: Exam Narrative: Blood pressure 134/70 pulse is 56 afebrile Pupils equal reactive light sclera anicteric Lungs clear CV regular rate rhythm Abdomen is soft nontender Extremities without edema distal pulses are 1+ Neuro alert no focal deficits Objective Data Vital Signs Vital Signs: Vital Signs - 24 hr 11/26/19 20:00 11/26/19 20:14 11/26/19 22:00 Temperature 37.0 C Pulse Rate 61 60 56 L Respiratory Rate 20 Blood Pressure 169/71 H Pulse Oximetry 99 11/26/19 23:34 11/27/19 00:00 11/27/19 02:00 Temperature 37.5 C Pulse Rate 70 61 59 L Respiratory Rate 20 Blood Pressure 130/68 Pulse Oximetry 98 11/27/19 04:00 11/27/19 04:21 11/27/19 05:57 Temperature 36.3 C L Pulse Rate 58 L 55 L 57 L Respiratory Rate 20 Blood Pressure 146/68 H Pulse Oximetry 99 11/27/19 08:00 11/27/19 10:00 11/27/19 10:15 Temperature 36.9 C Pulse Rate 60 59 L 68 Respiratory Rate 18 Blood Pressure 139/65 165/75 H Pulse Oximetry 100 100 11/27/19 12:00 11/27/19 16:00 Temperature 36.6 C 37.1 C Pulse Rate 67 56 L Respiratory Rate 18 16 Blood Pressure 114/60 134/71 Pulse Oximetry 98 99 Intake/Output Intake/Output: Intake & Output 11/24/19 11/25/19 11/26/19 11/27/19 23:59 23:5
--- NOTE | 2019-11-27 18:59 | PM.PNCARD ---
Progress Note: A&P Assessment and Plan (1) Coronary artery disease: Qualifiers: Coronary Disease-Associated Artery/Lesion type: unspecified vessel or lesion type [place] vs. transplanted heart: [place] heart Associated angina: with unstable angina Qualified Code(s): I25.110 - Atherosclerotic heart disease of [place] coronary artery with unstable angina pectoris Code(s): I25.10 - Atherosclerotic heart disease of [place] coronary artery without angina pectoris Status: Acute Assessment and Plan: Remote CABG, angioplasty current angina and suspect restenosis. Heart rate and blood pressure are controlled. Waiting for bed at [facility] for further evaluation and treatment. Continue aspirin, clopidogrel, simvastatin Currently not on a beta-miguel ángel as heart rate is 51 to 60 at times. (2) Angina at rest: Code(s): I20.8 - Other forms of angina pectoris Status: Acute Assessment and Plan: Had more chest pain this morning relieved by TNG x2. (3) PVCs (premature ventricular contractions): Code(s): I49.3 - Ventricular premature depolarization Status: Acute Subjective Date/time seen: 11/27/19 18:59 Date of service: 11/27/2019 Follow-up for CAD and chest pain. Patient had a protected left main angioplasty in August, sacroiliac surgery followed, but now has recurrent angina. He is waiting for a bed a [place] for definitive Cardiac Procedure as re-stenosis is suspected. He had an episode of chest discomfort early this morning on awakening when he also had a lot of back and hip pain, relieved with 2 nitroglycerins but otherwise has had an eventful day. Review of Systems Constitutional: Constitutional: Reports no additional constitutional complaints Eyes: Eyes: Reports no additional eye complaints ENT: Denies epistaxis Cardiovascular: Cardiovascular: Reports chest pain and Denies leg edema Respiratory: Respiratory: Denies dyspnea Gastrointestinal: Gastrointestinal: Denies abdominal pain Genitourinary: Genitourinary: Denies hematuria Musculoskeletal: Musculoskeletal: Reports back pain Integumentary/Breasts: Skin/Breast: Denies rash Neurologic: Denies headache(s) Psychiatric: Psychiatric: Denies behavioral changes Exam Narrative: Exam Narrative: Pleasant conversational older male, no distress Const: General: no acute distress HENMT: Mouth: Yes moist mucous membranes Eyes: EOM: EOMs intact bilaterally Neck: Neck: supple Resp: Effort & Inspection: normal respiratory effort Cardio: Rate: regular rate Rhythm: abnormal rhythm Heart sounds: no murmurs Other: Occasional PVCs GI: Inspection: non-distended Skin: General skin exam: no rashes or lesions noted Neuro: Speech: normal speech Extrem: Right lower extremity: no edema Left lower extremity: no edema Psych: Mental Status: mental status grossly normal Affect: normal affect Objective Data Vital Signs Vital Signs: Vital Signs - 24 hr 11/26/19 20:00 11/26/19 20:14 11/26/19 22:00 Temperature 37.0 C Pulse Rate 61 60 56 L Respiratory Rate 20 Blood Pressure 169/71 H Pulse Oximetry 99 11/26/19 23:34 11/27/19 00:00 11/27/19 02:00 Temperature 37.5 C Pulse Rate 70 61 59 L Respiratory Rate 20 Blood Pressure 130/68 Pulse Oximetry 98 11/27/19 04:00 11/27/19 04:21 11/27/19 05:57 Temperature 36.3 C L Pulse Rate 58 L 55 L 57 L Respiratory Rate 20 Blood Pressure 146/68 H Pulse Oximetry 99 11/27/19 08:00 11/27/19 10:00 11/27/19 10:15 Temperature 36.9 C Pulse Rate 60 59 L 68 Respiratory Rate 18 Blood Pressure 139/65 165/75 H Pulse Oximetry 100 100 11/27/19 12:00 11/27/19 14:00 11/27/19 16:00 Temperature 36.6 C 37.1 C Pulse Rate 67 51 L 55 L Respiratory Rate 18 16 Blood Pressure 114/60 134/71 Pulse Oximetry 98 99 11/27/19 18:00 Temperature Pulse Rate 69 Respiratory Rate Blood Pressure Pulse Oximetry Intake/Output I
[2019-11-28] VITALS (9 sets, daily range): BP systolic 141–168; BP diastolic 60–76; PULSE 51–67; RESP 18–20; TEMP 36.2–36.7; O2SAT 98–100
[2019-11-28 04:54] LABS: Hematocrit 40.9 % (42.0-52.0); Hemoglobin 13.2 g/dL (14.0-18.0); Mean Corpuscular HGB Conc 32.3 g/dl (32-36); Mean Corpuscular Hemoglobin 31.8 pg (26-34); Mean Corpuscular Volume 98.6 fl (80-100); Mean Platelet Volume 9.3 fl (7.4-10.4); Platelet Count Result 148 k/mm3 (150-375); Red Blood Count 4.15 M/mm3 (4.6-6.20); Red Cell Distribution Width 13.1 % (11.5-14.5); White Blood Count 6.3 K/mm3 (4.5-10.0)
[2019-11-28 05:11] LABS: Blood Urea Nitrogen 17 mg/dL (9-20); Calcium 9.5 mg/dL (8.4-10.2); Carbon Dioxide 27 mmol/L (22-30); Chloride 99 mmol/L (98-107); Estimated CRCL calculation 68 ml/min; Estimated Glomerular Filt Rate > 60; Glucose 97 mg/dL (75-110); Potassium 4.5 mmol/L (3.4-5.0); Sodium 137 mmol/L (137-145)
[2019-11-28] MEDS: hydrALAZINE HCL 25 MG TABLET PO ×2 (08:58→18:37)
[2019-11-28] MEDS: ENOXAPARIN 40 MG/0.4 ML SYRINGE SUB-Q (08:58)
[2019-11-28] MEDS: CEFUROXIME AXETIL 250 MG TABLET 1 EACH PO ×2 (08:58→18:37)
[2019-11-28] MEDS: FUROSEMIDE 20 MG TABLET PO (09:02)
[2019-11-28] MEDS: FENTANYL 75 MCG/HR PATCH TRANSDERM (09:02)
[2019-11-28] MEDS: TAMSULOSIN HCL 0.4 MG CAPSULE PO (09:04)
[2019-11-28] MEDS: lisinopriL 10 MG TABLET PO ×2 (09:04→18:38)
--- NOTE | 2019-11-28 14:54 | PM.PNCARD ---
Progress Note: A&P Assessment and Plan (1) Coronary artery disease: Qualifiers: Coronary Disease-Associated Artery/Lesion type: unspecified vessel or lesion type [place] vs. transplanted heart: [place] heart Associated angina: with unstable angina Qualified Code(s): I25.110 - Atherosclerotic heart disease of [place] coronary artery with unstable angina pectoris Code(s): I25.10 - Atherosclerotic heart disease of [place] coronary artery without angina pectoris Status: Acute Assessment and Plan: Remote CABG, angioplasty current angina and suspect restenosis. Heart rate and blood pressure are controlled. Still waiting for bed at [facility] for further evaluation and treatment. Continue aspirin, clopidogrel, simvastatin Currently not on a beta-miguel ángel as heart rate is 51 to 60 at times. (2) Angina at rest: Code(s): I20.8 - Other forms of angina pectoris Status: Acute Assessment and Plan: No chest pain similar to that from yesterday morning but chest feels tight. Coronary artery disease treatment as above (3) PVCs (premature ventricular contractions): Code(s): I49.3 - Ventricular premature depolarization Status: Acute Assessment and Plan: Asymptomatic. Additional Plan Has we are still waiting on a bed from [facility] will attempt to transfer him to Dr.Gus Barfield at [facility] for the high risk PCI. Plan discussed with Dr Mckeon 1455 11/28/2019 Subjective Date/time seen: 11/28/19 14:54 Interval history: Follow-up for: Coronary artery disease. Still waiting on a bed at [facility] for risk PCI. Date of service: 11/28/2019 Subjective: No chest pain similar to that that he had yesterday but does feel some tightness. No shortness of breath with exertional activities but is not moving very far from the bed. No lightheadedness or palpitations. Hip pain improved Review of Systems Constitutional: Constitutional: Denies headache(s) Eyes: Eyes: Denies blurry vision ENT: Denies headache(s) and Denies epistaxis Cardiovascular: Cardiovascular: Reports chest pain (Chest tightness), Denies leg edema, Denies dyspnea and Denies dyspnea on exertion Respiratory: Respiratory: Denies dyspnea Gastrointestinal: Gastrointestinal: Denies abdominal pain Genitourinary: Genitourinary: Denies hematuria Musculoskeletal: Musculoskeletal: Reports back pain and Reports arthralgias (Continues to have some hip pain but improved) Integumentary/Breasts: Skin/Breast: Denies rash Neurologic: Denies behavioral changes and Denies headache(s) Psychiatric: Psychiatric: Denies behavioral changes Hematologic/Lymphatic: Hematologic/Lymphatic: Denies easy bleeding Allergic/Immunologic: Allergic/Immunologic: Reports no additional allergic/immunologic complaints Exam Const: General: no acute distress HENMT: Mouth: Yes moist mucous membranes Eyes: Sclera: sclerae normal Neck: Neck: supple and no JVD Resp: Effort & Inspection: normal respiratory effort Auscultation: clear to auscultation bilaterally Cardio: Rate: regular rate Rhythm: abnormal rhythm (Occasional PVCs) Heart sounds: no murmurs Peripheral pulses: Peripheral pulses 2+ throughout GI: Inspection: non-distended Auscultation: normal bowel sounds Skin: General skin exam: normal color and no rashes or lesions noted Neuro: Speech: normal speech Extrem: General: normal to inspection Right lower extremity: no edema Left lower extremity: no edema Psych: Mental Status: mental status grossly normal Affect: normal affect Objective Data Vital Signs Vital Signs: Vital Signs - 24 hr 11/27/19 16:00 11/27/19 18:00 11/27/19 20:00 Temperature 37.1 C 36.7 C Pulse Rate 55 L 69 64 Respiratory Rate 16 20 Blood Pressure 134/71 111/50 L Pulse Oximetry 99 96 11/27/19 22:00 11/27/19 23:41 11/28/19 00:00 Temperature 36.7 C Pulse Rate 60 60 62
[2019-11-28] MEDS: SIMVASTATIN 20 MG TABLET 40 MG PO (18:36)
[2019-11-28] MEDS: FINASTERIDE 5 MG TABLET PO (18:36)
[2019-11-28] MEDS: ASPIRIN 81 MG CHEWABLE TABLET PO (18:37)
--- NOTE | 2019-11-29 17:56 | PM.DS ---
DS: Diagnosis Admitting Diagnosis Admitting Diagnosis: Chest pain, unspecified Discharge Diagnosis (1) Chest pain: Qualifiers: Chest pain type: unspecified Qualified Code(s): R07.9 - Chest pain, unspecified Code(s): R07.9 - Chest pain, unspecified Status: Acute Assessment and Plan: Patient is 79-year-old male with severe coronary artery disease states he has a 14 stents patient states he developed the chest pain and came to the emergency room., he was seen by his dope mixer patient had a cardiac catheterization about 2 months ago and had a balloon Angiography patient did improve his symptoms, after reviewing his old chart cardiology came to conclusion patient will benefit from going to the tertiary care for further evaluation and possible treatment of his severe coronary artery disease Transfer to [facility] cardiology service (2) Coronary artery disease: Qualifiers: Associated angina: with unstable angina Coronary Disease-Associated Artery/Lesion type: unspecified vessel or lesion type [place] vs. transplanted heart: [place] heart Qualified Code(s): I25.110 - Atherosclerotic heart disease of [place] coronary artery with unstable angina pectoris Code(s): I25.10 - Atherosclerotic heart disease of [place] coronary artery without angina pectoris Status: Acute Assessment and Plan: Patient's home Plavix and aspirin were continued. The patient received nitropaste in the ER x1. . Nitro tablets are available if recurrent chest pain develops. Will continue patient's home Plavix, aspirin, simvastatin, and lisinopril. The patient is not on beta-miguel ángel therapy due to baseline bradycardia. Chest pain did not recur so did not fully anticoagulated (3) HTN (hypertension): Qualifiers: Hypertension type: essential hypertension Qualified Code(s): I10 - Essential (primary) hypertension Code(s): I10 - Essential (primary) hypertension Status: Acute Assessment and Plan: The patient's chest pain could have been due to elevated hypertension verses patient's blood pressure being elevated due to patient's actual chest pain symptoms. The patient had almost immediate improvement in his blood pressure with relief of his chest pain. resumed the patient's home hydralazine, lisinopril, Blood pressure still slightly toward the high side at time of discharge (4) Acute right otitis media: Code(s): H66.91 - Otitis media, unspecified, right ear Status: Acute Assessment and Plan: Continue home antibiotics. Cefuroxime DS: Summary Hospital Course Hospital Course: 79-year-old white male with complicated coronary history with multiple stents and recent angioplasty with recurrent chest pain. Seen by Cardiology and felt he would best be served by a attempt at revascularization at a tertiary care center. Was transferred to [facility] for further intervention and probable catheterization no acute NC at this time and was not fully anticoagulated since his pain resolved Time Spent with Patient Time attestation: Total time spent providing and/or coordinating discharge services: 35 minutes Exam Narrative: Exam Narrative: Condition on discharge: Blood pressure 160/60 pulse is 62 Lungs clear CV regular rate rhythm no murmurs Abdomen is soft nontender Extremities without edema Having no chest pain at present time Discharge Plan Discharge Attending physician on discharge: Andrew Meade Consulting providers: Anatoly Doe ; Cindy Mckeon ; Andrew Meade ; Cindy Bean ; Zachary Hoang ; Eulogio Shrestha Discharging Clinician: Andrew Meade Patient Disposition: Acute Care Hospital Discharge Medications: Continued hydralazine 25 mg Tablet 25 mg PO BID RF: 0 tamsulosin 0.4 mg Capsule 0.4 mg PO DAILY RF: 0 lisinopril 10 mg Tablet 10 mg PO BID RF: 0 ergocalciferol (vitamin D2) 50,000 unit Capsule
== END 2019-11-28 19:00 | disposition short-term general hospital (02) ==
LOC: ANHED 18:53 → ANHIMU 22:27
PROVIDERS: Emergency Medicine; Admitting Provider Internal Medicine; Emergency Provider General Practice; PCP Internal Medicine; Visit Provider Family Medicine
DX: I25.110 Atherosclerotic heart disease of native coronary artery with unstable angina pectoris (principal); I10 Essential (primary) hypertension; I49.3 Ventricular premature depolarization; H66.91 Otitis media, unspecified, right ear; I71.4 Abdominal aortic aneurysm, without rupture; G47.33 Obstructive sleep apnea (adult) (pediatric); J44.9 Chronic obstructive pulmonary disease, unspecified; M54.9 Dorsalgia, unspecified; G89.29 Other chronic pain; Z79.02 Long term (current) use of antithrombotics/antiplatelets; Z79.82 Long term (current) use of aspirin; Z79.891 Long term (current) use of opiate analgesic; Z79.899 Other long term (current) drug therapy; Z87.891 Personal history of nicotine dependence; Z95.1 Presence of aortocoronary bypass graft; Z96.651 Presence of right artificial knee joint; Z98.1 Arthrodesis status; Z99.89 Dependence on other enabling machines and devices
CPT/HCPCS: 36415; 71046; 80048; 80053; 83735; 84484; 85025; 85027; 85055; 85610; 85730; 93005; 96365; 96372; 99285; A9270; G0378; J0131; J1650

== ENCOUNTER 2019-12-17 14:08 | Outpatient (CLI) | payer MEDICARE, SELFPAY ==
--- NOTE | ~2019-12-17 | CT_ITS ---
EXAMINATION: CTA abdomen pelvis DATE: 12/18/2019 22:24 SPEECH AND HEARING CLINIC DIRECTOR INDICATION: Abdominal aortic aneurysm without rupture TECHNIQUE: Computed tomographic angiography (CTA) of the abdomen and pelvis was performed without and with 100 mL Omnipaque-350 intravenous contrast. The dose-length product was 1278.72 mGy-cm. Maximum intensity projection 3D-reconstructions of the aorta and other arteries were constructed by the techn ologist on a separate workstation. Automated exposure control and iterative reconstruction technique were employed. COMPARISON: CT dated 01/30/2015 FINDINGS: There is paraseptal emphysema predominantly affecting the lower lobes. Heart size normal. T here is atherosclerosis of the aorta and coronary arteries. No significant pleural or pericardial eff usion. Interval enlargement of fusiform infrarenal abdominal aortic aneurysm which measures 5 x 4.8 c m compared with 4.3 x 4.5 cm on prior examination. Interval development of curvilinear calcification internally anteriorly, consistent with focal dissection. The liver, spleen, pancreas, adrenal glands and kidneys are unremarkable. Colonic diverticulosis with out evidence for diverticulitis. No bowel obstruction. Gallbladder is present. There is a retroaortic left renal vein. No free air or free fluid. Mild bladder wall thickening. Prostate gland is enlarged . There are degenerative changes of the hips. There are changes of spinal fusion at T10-T12 and L1-L5 . There are severe lower thoracic and lumbar spondylosis. There is a new hypovascular 1.5 cm right re nal mass at the upper pole, suspicious for renal cell carcinoma. IMPRESSION: 1. Interval progression of fusiform infrarenal abdominal aortic aneurysm measuring 5 x 4.8 cm compare d with 4.3 x 4.5 cm on prior examination. Interval development of associated curvilinear calcificatio n, best seen on axial images, consistent with focal dissection. 2: New 1.5 cm hypovascular right renal mass, suspicious for renal cell carcinoma. Recommend urology consultation. 3: Enlarged prostate gland. Bladder wall thickening which may be due to outlet obstruction or cystiti s. 4: Paraseptal emphysema. Reviewed, dictated and finalized at location A. CH AND HEARING CLINIC DIRECTOR IMPRESSION: 1. Interval progression of fusiform infrarenal abdominal aortic aneurysm measur ing 5 x 4.8 cm compared with 4.3 x 4.5 cm on prior examination. Interval develo pment of associated curvilinear calcification, best seen on axial images, consi stent with focal dissection. 2: New 1.5 cm hypovascular right renal mass, suspicious for renal cell carcino ma. Recommend urology consultation. 3: Enlarged prostate gland. Bladder wall thickening which may be due to outlet obstruction or cystitis. 4: Paraseptal emphysema.
[2019-12-17 15:10] LABS: Blood Urea Nitrogen 25 mg/dL (8-26); Estimated Glomerular Filt Rate > 60
== END 2019-12-17 14:09 | disposition home or self-care (01) ==
PROVIDERS: PCP Internal Medicine; Visit Provider Internal Medicine Cardiovascular Disease
DX: I71.4 Abdominal aortic aneurysm, without rupture (principal); R53.83 Other fatigue; N28.89 Other specified disorders of kidney and ureter; N40.0 Benign prostatic hyperplasia without lower urinary tract symptoms; J43.9 Emphysema, unspecified
CPT/HCPCS: 74174; Q9967

== ENCOUNTER 2019-12-21 12:27 | Emergency (ER) | payer MEDICARE, SELFPAY ==
--- NOTE | ~2019-12-21 | CT_ITS ---
EXAMINATION: CTA abdomen pelvis EXAM DATE: 12/21/2019 13:46 INDICATION: Low back pain, abdominal pain. Near syncope. History of abdominal aortic aneurysm. TECHNIQUE: Spiral CT angiogram of the abdomen and pelvis was performed following intravenous injectio n of 100 mL Omnipaque 350. Axial, coronal and sagittal images were reviewed. Maximum intensity proje ction 3-D reconstructions of the arteries were created by the technologist on dedicated workstation. The dose-length product (DLP) for this examination was 743.33 mGy-cm. The exposure was tailored a ccording to patient size (auto mA exposure control), and iterative reconstruction (ASIR) was used as additional dose reduction technique. Comparison is made to prior examination from 12/17/2019. FINDINGS: No aortic dissection. There is abdominal aortic measuring 4.8 cm, unchanged compared to 3 d ays earlier. No rupture. The liver, spleen, adrenal glands and pancreas are unremarkable. The gallb ladder is distended but otherwise unremarkable. There is no biliary duct dilation. Portal and splen ic veins are patent. Kidneys enhance symmetrically. There is no hydronephrosis. There is a 1.2 homogeneous lesion at the superior pole of the right kidney, measuring 8 mm in 2015 an d was hyperdense on the noncontrast study, most likely a hemorrhagic cyst. There is 3 mm right mid ca lyceal stone and 2 mm left inferior calyceal stone. There is mild prostatomegaly. Possible TURP defec t. The bladder is unremarkable. There is no retroperitoneal or pelvic lymphadenopathy. The appendix is not positively visualized. There is no pericecal inflammatory change to suggest appe ndicitis. There is mild sigmoid colonic diverticulosis. There is no adjacent inflammatory change to suggest diverticulitis. The stomach and small bowel are unremarkable. There is moderate amount of co lonic stool. No free intraperitoneal gas. The heart is normal in size. There are no pericardial or pleural effusions. Mild basilar fibrosis. There are thoracolumbar Hall rods. Bilateral sac roiliac joint fusion. Lucency surrounding the bilateral L5 pedicular screws indicating loosening. The other screws appear well seated. IMPRESSION: 1. No acute intra-abdominal findings. 2. Low abdominal 4.8 cm aneurysm, stable. No dissection. 3. Small right renal lesion most likely hemorrhagic cyst. 4. Bilateral nephrolithiasis. 5. Mild sigmoid diverticulosis. 6. Mild basilar fibrosis. 7. Moderate colonic stool. Reviewed, dictated and finalized at location A. ITATIVE RESEARCHER
[2019-12-21 12:25] VITALS: BP 189/94; PULSE 82; RESP 22; TEMP 36.5; O2SAT 100
--- NOTE | 2019-12-21 12:28 | ECG_ITS ---
Measurements Intervals [place] Rate: 71 P: VA: 0 QRS: 42 QRSD: 112 T: 12 QT: 392 QTc: 426 Interpretive Statements SINUS RHYTHM INTRAVENTRICULAR CONDUCTION DELAY BORDERLINE ST-T WAVE ABNORMALITY- INFERIOR LEADS BASELINE ARTIFACT- I, II, III, AVR, AVL, AVF, V1-V6 BORDERLINE ECG Electronically Signed On 12-21-2019 15:27:40 AIRFIELD ENGINEER OFFICER by Zachary Hoang D.O.
--- NOTE | 2019-12-21 12:36 | ED.BACK ---
HPI - Back Pain/Injury General Chief Complaint: Back Pain/Injury Stated Complaint: back pain Time Seen by Provider: 12/21/19 12:37 Source: patient Mode of arrival: EMS Limitations: no limitations History of Present Illness HPI Narrative: The pt is a 79 y/o male who presents to the ED, via EMS, c/o middle back pain. Pt states that he had a stent placed on 11/30/19 at [facility]. He states that he had a CT done on 12/17/19, who noticed his AAA had grown larger. He states that he was told that if he experienced back pain, ABD pain, or CP, he needed to come to the ED. Pt reports resolved ABD pain. Pt notes that he takes Plavix. MD elicited complaint: back pain Pertinent past history: other (AAA) Location: thoracic spine ( Middle ) Associated symptoms: abdominal pain (Resolved) Related Data Home Medications Medication Instructions Recorded Confirmed Atrovent HFA 1 puff INHALATION QID 09/01/19 11/25/19 Dulera 2 puff INHALATION Q12H 09/01/19 11/25/19 aspirin 81 mg PO QPM 09/01/19 11/25/19 clopidogrel [Plavix] 75 mg PO DAILY 09/01/19 11/25/19 ergocalciferol (vitamin D2) 50,000 unit PO WEEKLY 09/01/19 11/25/19 fentanyl 1 patch TRANSDERMAL Q72H 09/01/19 11/25/19 finasteride 5 mg PO QPM 09/01/19 11/25/19 furosemide 20 mg PO DAILY 09/01/19 11/25/19 hydralazine 25 mg PO BID 09/01/19 11/25/19 hydrocodone-acetaminophen 2 tablet PO Q6H PRN 09/01/19 11/25/19 lisinopril 10 mg PO BID 09/01/19 11/25/19 ropinirole 0.5 mg PO HS 09/01/19 11/25/19 tamsulosin 0.4 mg PO DAILY 09/01/19 11/25/19 testosterone cypionate See Rx Instructions .ROUTE .COMPLEX 09/01/19 11/25/19 atorvastatin 40 mg PO HS 12/21/19 lubiprostone [Amitiza] 24 mcg PO DAILY PRN 12/21/19 Allergies Allergy/AdvReac Type Severity Reaction Status Date / Time clopidogrel Allergy Mild Unknown Verified 11/25/19 18:48 albuterol Allergy Unknown Verified 11/25/19 18:48 metoprolol [From Toprol XL] Allergy Unknown Verified 11/25/19 18:48 paroxetine Allergy Confusion Verified 11/25/19 23:04 Review of Systems Review of Systems: All systems reviewed & are unremarkable except as noted in HPI and below Gastrointestinal: Gastrointestinal: Reports abdominal pain (Resolved) Musculoskeletal: Musculoskeletal: Reports back pain (Middle) [facility] Past Medical History Medical History Abdominal aortic aneurysm He is followed by Dr. Wilks at [facility]. BPH (benign prostatic hyperplasia) Chronic pain Patient has chronic back pain and is on fentanyl patch COPD (chronic obstructive pulmonary disease) Coronary artery disease Status post CABG in 1990 or 1998 with upwards of 14 cardiac stents since that time. Gastric ulcer HTN (hypertension) Obstructive sleep apnea on CPAP Surgical History Surgical History H/O heart artery stent x14 History of cardiac cath Most recent cardiac catheterization September 04, 2019 demonstrated severe comanche vessel coronary artery disease with 100% chronic total occlusion of the ostial LAD, high-grade 70% InStent stenosis ostial ramus intermedius; multiple stents seen along the remainder of the ramus intermedius with diffuse mild InStent restenoses. Patent prior stents in dominant left circumflex; slightly sluggish blood flow in the left circumflex artery. Non dominant RCA with severe diffuse disease in the proximal segment. Patent CONKLIN to LAD; occluded vein graft to 1 of the coronaries on the left side. Patent left subclavian artery. With intravascular ultrasound guided balloon angioplasty of the distal left main ostial ramus intermedius History of colonoscopy History of hip surgery right History of tonsillectomy At the age of 28 History of total right knee replacement Two thousand. Hx of CABG Performed in 1990 or 1998. Previous back surgery x2 in 2017 in 2018 with extensive fusion, done at [facility] in [place]. Social History Social Histor
[2019-12-21] MEDS: HYDROMORPHONE HCL 1 MG/ML INJ 0.5 MG IV PUSH (13:01)
[2019-12-21] MEDS: PROMETHAZINE HCL 25 MG/ML AMPUL 12.5 MG IV PUSH (13:01)
[2019-12-21 13:39] LABS: Blood Urea Nitrogen 13 mg/dL (8-26); Estimated CRCL calculation 68 ml/min; Estimated Glomerular Filt Rate > 60
[2019-12-21 13:39] LABS: Alanine Aminotransferase 20 U/L (4-50); Albumin Level 4.6 g/dL (3.5-5.1); Alkaline Phosphatase 94 U/L (38-126); Aspartate Amino Transferase 32 U/L (17-59); Bilirubin,Total 0.5 mg/dL (0.2-1.3); Blood Urea Nitrogen 13 mg/dL (9-20); Calcium 9.7 mg/dL (8.4-10.2); Carbon Dioxide 26 mmol/L (22-30); Chloride 98 mmol/L (98-107); Estimated CRCL calculation 68 ml/min; Estimated Glomerular Filt Rate > 60; Glucose 99 mg/dL (75-110); Sodium 139 mmol/L (137-145)
[2019-12-21 13:43] LABS: Prothrombin Time 12.6 Seconds (11.1-14.7)
[2019-12-21 13:53] LABS: Troponin I < 0.012 ng/mL (0.000-0.034)
[2019-12-21 14:06] VITALS: BP 159/79; PULSE 66; RESP 15; O2SAT 99
[2019-12-21 14:07] LABS: Basophils Percent Auto 0.4 % (0.2-1.2); Eosinophils Absolute Auto 0.1 K/mm3 (0-0.3); Eosinophils Percent Auto 1.2 % (0-4.4); Hematocrit 44.5 % (42.0-52.0); Hemoglobin 14.4 g/dL (14.0-18.0); Immature Granulocyte Absolute 0.01 K/mm3 (0.00-0.031); Immature Granulocyte Percent A 0.2 % (0-0.5); Immature Platelet Fraction Pct 1.7 % (0.9-11.2); Lymphocytes Percent Auto 15.8 % (18.3-44.2); Mean Corpuscular HGB Conc 32.4 g/dl (32-36); Mean Corpuscular Hemoglobin 31.3 pg (26-34); Mean Corpuscular Volume 96.7 fl (80-100); Mean Platelet Volume 9.6 fl (7.4-10.4); Monocytes Absolute Auto 0.4 K/mm3 (0.1-0.6); Monocytes Percent Auto 7.5 % (2.6-8.5); Neutrophils Absolute Auto 4.3 K/mm3 (1.3-6.7); Neutrophils Percent Auto 74.9 % (45.5-73.1); Platelet Count Result 139 k/mm3 (150-375); Red Cell Distribution Width 13.2 % (11.5-14.5); White Blood Count 5.7 K/mm3 (4.5-10.0)
[2019-12-21 15:53] VITALS: BP 131/76; PULSE 64; RESP 14; O2SAT 99
[2019-12-21 17:00] VITALS: BP 148/89; PULSE 86; RESP 20; O2SAT 100
== END 2019-12-21 17:00 | disposition home or self-care (01) ==
PROVIDERS: Emergency Provider Emergency Medicine; PCP Internal Medicine
DX: I71.4 Abdominal aortic aneurysm, without rupture (principal); M54.5 Low back pain; N40.0 Benign prostatic hyperplasia without lower urinary tract symptoms; G89.29 Other chronic pain; J44.9 Chronic obstructive pulmonary disease, unspecified; I25.10 Atherosclerotic heart disease of native coronary artery without angina pectoris; Z95.1 Presence of aortocoronary bypass graft; Z95.5 Presence of coronary angioplasty implant and graft; I10 Essential (primary) hypertension; G47.33 Obstructive sleep apnea (adult) (pediatric); Z96.651 Presence of right artificial knee joint; Z87.891 Personal history of nicotine dependence; K57.90 Diverticulosis of intestine, part unspecified, without perforation or abscess without bleeding; N28.9 Disorder of kidney and ureter, unspecified; K57.30 Diverticulosis of large intestine without perforation or abscess without bleeding; I45.9 Conduction disorder, unspecified; R94.31 Abnormal electrocardiogram [ECG] [EKG]; Z79.01 Long term (current) use of anticoagulants
CPT/HCPCS: 36415; 74174; 80053; 83605; 84484; 85025; 85055; 85610; 85730; 93005; 96374; 96375; 99284; J1170; J2550; Q9967

== ENCOUNTER 2019-12-24 11:42 | Emergency (ER) | payer MEDICARE, SELFPAY ==
[2019-12-24] VITALS (18 sets, daily range): BP systolic 121–177; BP diastolic 65–115; PULSE 76–109; RESP 10–23; TEMP 36.9; O2SAT 96–100
--- NOTE | ~2019-12-24 | XR_ITS ---
EXAMINATION: XR chest 2V DATE: 12/24/2019 13:07 INDICATION: Chest pain and shortness of breath TECHNIQUE: AP and lateral views of the chest are obtained. COMPARISON: 11/25/2019 FINDINGS: The lungs are free of acute opacities. There are chronic bibasilar airspace opacities. Ther e is no pleural effusion or pneumothorax. The heart size is normal. There are changes of coronary art fabrice bypass grafting. Coronary artery stents are noted. A loop recorder is implanted in the anterior s ubcutaneous tissues of the left chest wall. There are changes of posterior fusion in the thoracolumba r spine. IMPRESSION: 1. Chronic bibasilar opacities without acute cardiopulmonary abnormality. Reviewed, dictated and finalized at location A. AL SUPERVISOR
--- NOTE | 2019-12-24 12:05 | ECG_ITS ---
Measurements Intervals [place] Rate: 72 P: -16 AR: 138 QRS: 51 QRSD: 111 T: -1 QT: 383 QTc: 421 Interpretive Statements SINUS RHYTHM VENTRICULAR PREMATURE COMPLEXES INTRAVENTRICULAR CONDUCTION DELAY BORDERLINE R WAVE PROGRESSION, ANTERIOR LEADS BORDERLINE ST-T WAVE ABNORMALITY- INFERIOR LEADS BASELINE ARTIFACT- I, II ,III, AVR, AVF ABNORMAL ECG Electronically Signed On 12-24-2019 13:52:01 SUPERVISOR THROWING DEPARTMENT by Zachary Hoang D.O.
[2019-12-24 12:28] LABS: Basophils Percent Auto 0.5 % (0.2-1.2); Eosinophils Percent Auto 0.5 % (0-4.4); Hematocrit 44.1 % (42.0-52.0); Hemoglobin 14.5 g/dL (14.0-18.0); Immature Granulocyte Absolute 0.02 K/mm3 (0.00-0.031); Immature Granulocyte Percent A 0.3 % (0-0.5); Immature Platelet Fraction Pct 1.4 % (0.9-11.2); Lymphocytes Absolute Auto 0.77 K/mm3 (0.9-3.2); Lymphocytes Percent Auto 12.6 % (18.3-44.2); Mean Corpuscular HGB Conc 32.9 g/dl (32-36); Mean Corpuscular Hemoglobin 31.5 pg (26-34); Mean Corpuscular Volume 95.9 fl (80-100); Mean Platelet Volume 9.3 fl (7.4-10.4); Monocytes Absolute Auto 0.4 K/mm3 (0.1-0.6); Monocytes Percent Auto 6.4 % (2.6-8.5); Neutrophils Absolute Auto 4.9 K/mm3 (1.3-6.7); Neutrophils Percent Auto 79.7 % (45.5-73.1); Platelet Count Result 116 k/mm3 (150-375); Red Cell Distribution Width 13.2 % (11.5-14.5); White Blood Count 6.1 K/mm3 (4.5-10.0)
[2019-12-24 12:36] LABS: Prothrombin Time 13.3 Seconds (11.1-14.7)
[2019-12-24 12:37] LABS: Partial Thromboplastin Time 27.5 SECONDS (22.3-36.8)
[2019-12-24 12:39] LABS: Blood Urea Nitrogen 15 mg/dL (9-20); Calcium 9.4 mg/dL (8.4-10.2); Carbon Dioxide 25 mmol/L (22-30); Chloride 96 mmol/L (98-107); Estimated CRCL calculation 71 ml/min; Estimated Glomerular Filt Rate > 60; Glucose 103 mg/dL (75-110); Potassium 3.9 mmol/L (3.4-5.0); Sodium 138 mmol/L (137-145)
--- NOTE | 2019-12-24 12:43 | ED.CHESTPAIN ---
HPI - Chest Pain General Chief Complaint: Chest Pain Stated Complaint: BACKPAIN/CP Time Seen by Provider: 12/24/19 12:33 Source: patient and RN notes reviewed Mode of arrival: ambulatory Limitations: no limitations History of Present Illness HPI narrative: Pt is a 79 y/o male who presents to the ED with c/o chest tightness. Pt states he has a PMHx of hypertension. He reports taking his hypertension medication at 0800 this morning like normal. However, even after 2 hours after taking his hypertension medication, his blood pressure was 205/110. He states he took another half dose of Lisinopril medication, which did not alleviate his symptoms. Pt states he called his drupal architect's office, Dr. Gamino, shortly after, who prompted him to come to the ED to be evaluated further. Pt reports he was seen 3 days ago for similar symptoms. He has been diagnosed with an ABD aneurysm which he has been having multiple CT scans ordered to ensure it has not ruptured. Pt reports increased 8/10 back pain which he thinks could be due to his aneurysm rupturing. Pt also reports right-sided facial tightness and a severe headache. MD complaint: other (chest tightness) Pertinent past history: other (hypertension) Onset (ago): hour(s) (0800 this morning) Timing of current episode: constant and other (still present but better) Onset: during rest Pain location: other (diffuse) Pain radiation: none Quality: tightness Relieving factors: nothing (tried his hypertension medication without relief) Exacerbating factors: nothing Associated symptoms: other (right-sided facial tightness; headache; back pain) Related Data Allergies Allergy/AdvReac Type Severity Reaction Status Date / Time paroxetine Allergy Severe Unknown Verified 12/24/19 13:19 clopidogrel Allergy Mild aches Verified 12/24/19 13:19 albuterol Allergy Unknown Unknown Verified 12/24/19 13:19 metoprolol Allergy Unknown Unknown Verified 12/24/19 13:19 Review of Systems Review of Systems: All systems reviewed & are unremarkable except as noted in HPI and below Constitutional: Constitutional: Reports other (right-sided facial tightness) Cardiovascular: Cardiovascular: Reports chest pain (chest tightness) Musculoskeletal: Musculoskeletal: Reports back pain Neurologic: Reports headache(s) [facility] Social History Social History Smoking status: Smoker, status unknown Gender identity (if verbalized by the patient): Male Exam Narrative: Exam Narrative: Const: Healthy appearing, no acute distress, well nourished. HENMT: Lip normal, Moist mucous membranes. Eyes: Conjunctive normal, PERRL. Resp: Normal respiratory effect, clear to auscultation bilaterally. Cardio: Regular rate, regular rhythm, no murmurs. GI: Soft, nontender, normal bowel sounds. Back/Spine/Pelvis: Full ROM Skin: Normal color, dry skin, warm Neuro: Oriented x3, alert, normal speech. Extremities: Full ROM Psych: Mental status grossly normal. Anxious. Course Vital Signs Vital signs: Vital Signs Temperature 36.9 C 12/24/19 11:46 Pulse Rate 87 12/24/19 11:46 Respiratory Rate 20 12/24/19 11:46 Blood Pressure 168/95 H 12/24/19 11:46 Pulse Oximetry 100 12/24/19 11:46 Temperature 36.9 C 12/24/19 11:46 Pulse Rate 84 12/24/19 15:11 Respiratory Rate 16 12/24/19 15:11 Blood Pressure 144/65 H 12/24/19 15:11 Pulse Oximetry 99 12/24/19 15:11 MDM - Chest Pain MDM Narrative Medical decision making narrative: BP and pain improved with treatment. Case discussed with DONOVAN Bean. No need to admit at this time. He has follow-up with vascular surgery tomorrow. Medical Records Data Attestation: I reviewed the patient's medical records. Lab Data Attestation: I reviewed the patient's lab results. Result diagrams: 12/24/19 12:12 12/24/19 12:14 Labs: Lab Results 12/24/19 12/24/19 12/24/19 Range/Units 12:12 12:14 12:14 WBC 6.1 (4.5-10.0)
[2019-12-24 12:50] LABS: Troponin I < 0.012 ng/mL (0.000-0.034)
[2019-12-24] MEDS: ASPIRIN 81 MG CHEWABLE TABLET 324 MG PO (13:17)
--- NOTE | 2019-12-24 13:36 | PC.NURSE ---
Pt refused labetolol for elevated BP at this time. Pt states med makes him pass out and causes dizziness. ER doctor notified.
[2019-12-24] MEDS: hydrALAZINE HCL 20 MG/ML VIAL 10 MG IV PUSH (14:01)
== END 2019-12-24 16:05 | disposition home or self-care (01) ==
PROVIDERS: Emergency Medicine; Emergency Provider Emergency Medicine; PCP Internal Medicine
DX: R07.89 Other chest pain (principal); I10 Essential (primary) hypertension; I49.3 Ventricular premature depolarization; I71.4 Abdominal aortic aneurysm, without rupture; I45.9 Conduction disorder, unspecified; R94.31 Abnormal electrocardiogram [ECG] [EKG]; Z95.5 Presence of coronary angioplasty implant and graft
CPT/HCPCS: 36415; 71046; 80048; 84484; 85025; 85055; 85610; 85730; 93005; 96374; 96375; 99284; A9270; J0360; J3010

== ENCOUNTER 2020-03-27 08:35 | Outpatient (CLI) | payer MEDICARE, SELFPAY ==
--- NOTE | ~2020-03-27 | CT_ITS ---
EXAMINATION: CT abdomen pelvis wo/w con DATE: 03/27/2020 09:27 INDICATION: Renal mass TECHNIQUE: Computed tomography (CT) of the abdomen was performed without intravenous contrast. CT of the abdomen and pelvis was then performed with a to hilda of 130 mL Omnipaque 350 intravenous contrast using a double-bolus technique for simultaneous opac ification of the renal parenchyma and renal collecting system. The dose-length product (DLP) was 1673 .23 mGy-cm. Automated exposure control and iterative reconstruction technique were employed. COMPARISON: 12/21/2019 FINDINGS: There is atelectasis of the visualized lung bases. Mild bronchiectasis of the lower lobes c ould reflect prior infection. Subpleural reticular opacities are unchanged, consistent with chronic i nterstitial lung disease. The heart size is normal. The liver, spleen, pancreas, gallbladder, and adr enal glands are normal. There hyperdense lesions in the upper pole and lower pole of the kidney measu ring 1.5 cm and 0.6 cm, respectively, which are consistent with hemorrhagic cysts. There is a 4 mm no nobstructing stone of the right mid kidney. A 2 mm nonobstructing stone is present in the lower pole of the otherwise normal left kidney. No pathologically enlarged abdominal or pelvic lymph nodes are i dentified. There is no free intraperitoneal gas or evidence of bowel obstruction. There is a stable 4 .8 x 4.5 cm fusiform infrarenal abdominal aortic aneurysm status post interval aortobiiliac endolumin al stent graft repair. There is a subtle amount of contrast seen in the endoluminal space on the elisa yed postcontrast images. There is an approximately 1.9 x 1.7 cm fluid collection in the right groin a amy. There is severe lower thoracic and lumbar spondylosis with changes of posterior thoracolumbar fu daniel. Mild bladder wall thickening likely reflects incomplete distention or chronic outlet obstructio n. IMPRESSION: 1. Right kidney masses with CT features consistent with hemorrhagic cysts. 2. Fusiform infrarenal abdominal aortic aneurysm status post interval endoluminal aortobiiliac abdomi nal aortic aneurysm repair with small fluid collection in the right groin and small endoleak, type II versus type III. 3. Bilateral nephrolithiasis. Reviewed, dictated and finalized at location A. IMPRESSION: 1. Right kidney masses with CT features consistent with hemorrhagic cysts. 2. Fusiform infrarenal abdominal aortic aneurysm status post interval endolumin al aortobiiliac abdominal aortic aneurysm repair with small fluid collection in the right groin and small endoleak, type II versus type III. 3. Bilateral nephrolithiasis.
[2020-03-27 09:14] LABS: Estimated Glomerular Filt Rate > 60
== END 2020-03-27 08:36 | disposition home or self-care (01) ==
PROVIDERS: PCP Internal Medicine
DX: N28.89 Other specified disorders of kidney and ureter (principal); N20.0 Calculus of kidney; I71.4 Abdominal aortic aneurysm, without rupture
CPT/HCPCS: 36415; 74178; Q9967

== ENCOUNTER 2020-10-02 11:17 | Outpatient (CLI) | payer MEDICARE, SELFPAY ==
--- NOTE | ~2020-10-02 | XR_ITS ---
XR abdomen/kub 1V 10/02/2020 11:31 Indication: Renal stone Procedure: KUB Comparison: 05/26/2018 Findings: Bowel gas pattern is nonobstructive. There are surgical changes consistent with lower thora cic and lumbar spine fusion. There is an aorto iliac artery stent. There is bibasilar atelectasis/sca rring. Impression: 1: No acute abdominal abnormality. Reviewed, dictated and finalized at location B. L FABRICATOR Impression: 1: No acute abdominal abnormality.
== END 2020-10-02 11:18 | disposition home or self-care (01) ==
PROVIDERS: PCP Internal Medicine; Visit Provider Urology
DX: N20.0 Calculus of kidney (principal)
CPT/HCPCS: 74018

== ENCOUNTER 2023-06-28 13:31 | Outpatient (CLI) | payer MEDICARE, SELFPAY ==
--- NOTE | ~2023-06-28 | XR_ITS ---
XR lumbar spine 2-3V DATE: 06/28/2023 13:57 INDICATION: Low back pain. Spinal stenosis. TECHNIQUE: Standing AP and lateral views of lumbar spine COMPARISON: December 16, 2016 CT lumbar spine FINDINGS: There are pedicle screws and rods in the lower thoracic spine. There are posterior pedicle screws and rods extending from L1 to L5. There are connectors between the lower thoracic and lumbar rods at L1-2. 3 fixation devices transverse each sacroiliac area. There is osteopenia. The lumbar vertebrae are normally aligned. There is multilevel degenerative disc disease, most pronounced at L4-5 and L5-S1. Endovascular abdominal aortobiiliac graft. IMPRESSION: Status post posterior lower thoracic and lumbar spinal surgical fusion. Status post bilat eral sacroiliac joint fusion Multilevel degenerative disease of the lumbar spine Reviewed, dictated and finalized at location L. IMPRESSION: Status post posterior lower thoracic and lumbar spinal surgical fus ion. Status post bilateral sacroiliac joint fusion Multilevel degenerative disease of the lumbar spine
--- NOTE | ~2023-06-28 | CT_ITS ---
Noncontrast CT scan of the lumbar spine CLINICAL HISTORY: Back pain TECHNIQUE: Axial noncontrast imaging of the lumbar spine was performed. Sagittal and coronal reformat jyotsna images were constructed. Dose reduction technique was used on this scan by utilizing automated ex posure control and iterative reconstruction technique. The dose-length product (DLP) was 1367.22 mGy- cm. COMPARISON: 12/16/2016 FINDINGS: There is posterior fusion hardware extending from T10 through L5, bilateral rods and transp edicular screws present. There are laminectomy defects of L2, L3, and L4. There is severe degenerativ e disc narrowing at L1-L2 and L4-L5, with moderate degenerative disc narrowing at the remaining lumba r levels. There are also orthopedic bolts transfixing the bilateral SI joints. At L1-L2, there is probable disc osteophyte complex and facet arthropathy. No tien canal stenosis wi th posterior decompression present. There is severe bilateral neural foraminal narrowing, left worse than right. At L2-L3, there is minimal disc bulge. There is posterior decompression. There is mild to moderate bi lateral neural foraminal narrowing. At L3-L4, there is posterior decompression. There is moderate to severe bilateral neural foraminal na rrowing. At L4-L5, there is no central canal stenosis. There is severe bilateral neural foraminal narrowing, r ight worse than left. At L5-S1, there is severe facet arthropathy. No definite central canal stenosis. There is severe bila teral neural foraminal narrowing. Aortic stent graft is in place, with underlying aortic aneurysm, which measures up to 4.[address] Impression: Posterior fusion from T10 through S1, as detailed above, with associated laminectomy defects from L2 through L4. Moderate to advanced degenerative spondylosis, as detailed above, with multilevel neural foraminal na rrowing. Reviewed, dictated and finalized at location . Impression: Posterior fusion from T10 through S1, as detailed above, with associated jose ctomy defects from L2 through L4. Moderate to advanced degenerative spondylosis, as detailed above, with multilev el neural foraminal narrowing.
== END 2023-06-28 13:32 | disposition home or self-care (01) ==
PROVIDERS: PCP Internal Medicine; Visit Provider Neurological Surgery
DX: M47.896 Other spondylosis, lumbar region (principal); Z98.1 Arthrodesis status
CPT/HCPCS: 72100; 72131